=== PATIENT | female | born 1975 | race Caucasian/White ===

== ENCOUNTER 2024-10-26 17:52 | Emergency (ER) | payer BC, SELFPAY ==
[2024-10-26 18:30] VITALS: BP 142/79; PULSE 85; RESP 18; TEMP 37.6; O2SAT 100; BMI 30.9
--- NOTE | 2024-10-26 18:35 | PC.NURSE ---
DR CASTAÑEDA AT BEDSIDE
--- OUTSIDE RECORDS SUMMARY | 2024-10-26 18:45 | XMS_ITS | Encounter Summary ---
Author Organization [employer] ([place], [place], [place], [place]) Address [address] [place] [address] Care Team Providers Care Marketing Co Op Name Role Phone Unavailable Primary Care Provider Unavailabl e Encounter Details Date Type Department Care Team (Late st Contact Info) Description 12/17/2018 Transcribed Document [facility] [place] [address] [place] [address] ProviderJessee MD [address] [place], [place] [id number] Social History Tobacco Use Types Packs/Day Years Used Date Smoking Tobacco: Never Assessed Comments Unknown Sex and Gender Information Value Date Recorded Sex Assigned at Female 10/19/2021 12:32 PM CDT Legal Sex Female 6:42 PM CDT Gender Identity Female 10/19/2021 12:32 PM CDT Sexual Orientation Not on file documented as of this encounter Miscellaneous Notes * Cerner Conversion Note - Jessee ProviderMD - 12/17/2018 2:19 PM CDT Pain Assessment Entered On: 12/17/2018 15:43 EDT Performed On: 12/17/2018 15:43 EDT by Raissa Morris RN Intervention Information: HYDROmorphone Performed by Raissa Morris RN on 12/17/2018 14:25:00 EDT HYDROmorphone,1mg IV Push,Peripheral Line 1 Pain Assessment Pain Assessment : Follow-up assessment Pain Scale Used : 0-10 Scale Raissa Morris RN - 12/17/2018 15:43 EDT Pain Scale Intensity : 5 Raissa Morris RN - 12/17/2018 15:43 EDT Image 4 - Images currently included in the form version of this document have not been included in the text rendition version of the form. documented in this encounter Plan of Treatment Not on file documented as of this encounter Visit Diagnoses Not on filedocumented in this encounter
--- OUTSIDE RECORDS SUMMARY | 2024-10-26 18:45 | XMS_ITS | Encounter Summary ---
Author Organization [employer] ([place], [place], [place]) Address [address] [place] [address] Care Team Providers Care Exhaust And Muffler Repairer Name Role Phone Unavailable Primary Care Provider Unavailabl e Encounter Details Date Type Department Care Team (Late st Contact Info) Description 12/17/2018 Transcribed Document [facility] [place] [address] [place] [address] ProviderJessee MD [address] [place], [place] [id number] Social History Tobacco Use Types Packs/Day Years Used Date Smoking Tobacco: Never Assessed Comments Unknown Sex and Gender Information Value Date Recorded Sex Assigned at Female 10/19/2021 12:32 PM CDT Legal Sex Female 6:42 PM CDT Gender Identity Female 10/19/2021 12:32 PM CDT Sexual Orientation Not on file documented as of this encounter Miscellaneous Notes * Cerner Conversion Note - Historical ProviderMD - 12/17/2018 4:12 PM CDT Education-Diabetes Topics Entered On: 12/17/2018 17:44 EDT Performed On: 12/17/2018 16:12 EDT by Cindy Klein Rn Teaching/Learning Assessment Barriers To Learning : None evident Highest Level of Education : High school Learning Style Preferences Patient : Verbal explanation Learning Style Preferences Family : Verbal explanation Cindy Klein Rn - 12/17/2018 17:44 EDT Electronically signed by Brook Mcrae Conversion Environmental Sampling Technician Cerner at 08/08/2022 11:17 PM CDT documented in this encounter Plan of Treatment Not on file documented as of this encounter Visit Diagnoses Not on filedocumented in this encounter
--- OUTSIDE RECORDS SUMMARY | 2024-10-26 18:45 | XMS_ITS | Encounter Summary ---
Author Organization [employer] ([place], [place], [place]) Address [address] [place] [address] Care Team Providers Care Gas Mask Assembler Name Role Phone Unavailable Primary Care Provider Unavailabl e Encounter Details Date Type Department Care Team (Late st Contact Info) Description 12/17/2018 Transcribed Document [facility] [place] [address] [place] [address] ProviderJessee MD [address] [place], [place] [phone] Social History Tobacco Use Types Packs/Day Years [...] Conversion Note - Historical ProviderMD - 12/17/2018 1:45 PM CDT ED Assessment Entered On: 12/17/2018 14:42 EDT Performed On: 12/17/2018 14:40 EDT by Raissa Morris RN ED Quick Look Assessment Level of Consciousness : Alert, Awake Affect/Behavior : Appropriate, Calm, Cooperative Orientation : Oriented x 4 Raissa Morris RN - 12/17/2018 14:40 EDT ED General-Functional Assess Preferred Communication Mode : Verbal Communication Barrier : None Primary Language : [place] Any Spiritual/Cultural Needs or Requests : No Currently in Unsafe Situation : No Raissa Morris RN - 12/17/2018 14:40 EDT Social Habits Smoking Status : 10 or more cigarettes (1/2 pack or more)/day in last 30 days Smokeless Tobacco Status : Never Desires Tobacco Cessation Medication : No Reason for No Tobacco Cessation Medication : ED/procedural patient only Desires Tobacco Cessation Calc : 1 Raissa Morris RN - 12/17/2018 14:40 EDT Social History (As Of: 12/17/2018 14:42:06 EDT) Tobacco: Smoking Status Current every day smoker. Years of Use: 25. Last Used: 08/18/15. (Last Updated: 08/19/2015 06:58:21 EDT by YAMILETH AKINS, RN) Alcohol: Date/Time of Last Drink: never. (Last Updated: 08/19/2015 06:57:14 EDT by YAMILETH AKINS, RN) Gastrointestinal ED Gastrointestinal Assessment WDL : WDL with exceptions (Comment: + nausea, denies emesis. [Raissa Morris RN - 12/17/2018 14:40 EDT] ) Raissa Morris RN - 12/17/2018 14:40 EDT Genitourinary Assessment, ED Genitourinary Assessment WDL : WDL with exceptions (Comment: c/o L flank pain rad to L groin since Saturday, worse since 0 today. Known renal stone c CT done saturday - sent here per Dr. Aquilino Salazar's office for intervention. Denies fever. [Raissa Morris RN - 12/17/2018 14:40 EDT] ) Raissa Morris RN - 12/17/2018 14:40 EDT documented in this encounter Plan of Treatment Not on file documented as of this encounter Visit Diagnoses Not on filedocumented in this encounter
--- OUTSIDE RECORDS SUMMARY | 2024-10-26 18:45 | XMS_ITS | Encounter Summary ---
Author Organization [employer] ([place], [place], [place], [place]) Address [address] [place] [address] Care Team Providers Care Rn Diabetes Name Role Phone Unavailable Primary Care Provider Unavailabl e Encounter Details Date Type Department Care Team (Late st Contact Info) Description 12/18/2018 Transcribed Document [facility] Family Medicine [address] [place] [address] ProviderJessee MD [address] [place], [place] [phone] Social History Tobacco Use Types Packs/Day Years Used Date Smoking Tobacco: Never Assessed Comments Unknown Sex and Gender Information Value Date Recorded Sex Assigned at Female 10/19/2021 12:32 PM CDT Legal Sex Female 6:42 PM CDT Gender Identity Female 10/19/2021 12:32 PM CDT Sexual Orientation Not on file documented as of this encounter Miscellaneous Notes * Cerner Conversion Note - Jessee ProviderMD - 12/18/2018 3:42 PM CDT Final Discharge Planning Entered On: 12/18/2018 15:43 EDT Performed On: 12/18/2018 15:42 EDT by KIRSTIN BANKS Rn-Cmm Technician Final Discharge Planning Discharge Arrangements : Patient Post-Acute Information Patient Name: ENEIDA REY Gender: Female : [birth year] Age: 43 Years No Post-Acute Placement(s) Listed No Post-Acute Service(s) Listed No [place] Referral(s) Listed Transportation Needs : Family/Friend Discharge Transportation Arrangement Cmt : Discharge Medication Arrangements : Per andrew NOLASCO. Is Patient Ready for Discharge? : Yes Physician Notified Patient is Ready for Discharge? : Yes Discharge To Care Management : Home/Residential/Long Term or Self Care -01 KIRSTIN BANKS Rn-Cmm Technician - 12/18/2018 15:42 EDT documented in this encounter Plan of Treatment Not on file documented as of this encounter Visit Diagnoses Not on filedocumented in this encounter
--- OUTSIDE RECORDS SUMMARY | 2024-10-26 18:45 | XMS_ITS | Encounter Summary ---
Author Organization [employer] ([place], [place], [place], [place]) Address [address] [place] [address] Care Team Providers Care Wooden Barrel Mechanic Name Role Phone Unavailable Primary Care Provider Unavailabl e Encounter Details Date Type Department Care Team (Late st Contact Info) Description 12/17/2018 Transcribed Document [facility] [place] [facility] [place] [address] ProviderJessee MD [address] [place] [id number] Social History Tobacco Use Types Packs/Day Years [...] Conversion Note - Historical ProviderMD - 12/17/2018 2:18 PM CDT Patient: ENEIDA REY Age: 43 years Sex: Female : 1975 Associated Diagnoses: Left flank pain; Intractable pain; Left ureteral stone Author: MARYANN CAIN PA Basic Information Time seen: Date & time 12/17/2018 14:15:00. History source: Patient, significant other. Arrival mode: Private vehicle. History limitation: None. Additional information: Chief Complaint from Nursing Triage Note : Chief Complaint 12/17/2018 14:07 EDT Chief Complaint Pt has a known lt. kidney stone. Just left Dr. Salazar's office in [place] and he is on vacation . Here with severe pain . History of Present Illness The patient presents with flank pain. The onset was 2 days ago. The course/duration of symptoms is worsening. The Location of pain at onset was left, lower, abdominal and flank. The degree at present is severe. The exacerbating factor is none. Therapy today: has had two hydrocodone pills today. Risk factors consist of She had CT scan two days ago showing a 8x5cm left UPJ stone. Associated symptoms: nausea, denies chest pain, denies vomiting, denies diarrhea, denies shortness of breath, denies fever and denies chills. Additional history: She went to an appt at her urologist office (Dr Salazar) to see SENIOR ORACLE DATABASE DEVELOPER and due to her pain level she was advised to come to ER. Dr Salazar is out of town until next week. Review of Systems Constitutional symptoms: Negative except as documented in HPI. Skin symptoms: No rash, Eye symptoms: Negative except as documented in HPI. ENMT symptoms: Negative except as documented in HPI. Respiratory symptoms: No shortness of breath, no cough. Cardiovascular symptoms: No chest pain, no syncope. Gastrointestinal symptoms: Negative except as documented in HPI. Genitourinary symptoms: Negative except as documented in HPI. Musculoskeletal symptoms: Negative except as documented in HPI. Neurologic symptoms: Negative except as documented in HPI. Psychiatric symptoms: Negative except as documented in HPI. Endocrine symptoms: Negative except as documented in HPI. Hematologic/Lymphatic symptoms: Negative except as documented in HPI. Health Status Allergies: Allergic Reactions (Selected) No Known Medication Allergies. Medications: (Selected) Documented Medications Documented atorvastatin: 20 mg, Oral, Daily, 0 Refill(s) lisinopril: 10 mg, Oral, Daily, 0 Refill(s) metFORMIN: 1,000 mg, Oral, Daily, 0 Refill(s). Menstrual history: Last menstrual period: 2 week(s) ago. Past Medical/ Family/ Social History Medical history Endocrine: borderline diabetes . see problem list. Surgical history: renal lithotripsy on 08/17/2009 at 34 Years. c section. lithotripsy Jan 2018.. Family history: Not significant. Social history: Social & Psychosocial Habits Alcohol 08/19/2015 Date/Time of Last Drink never Tobacco 08/19/2015 Smoking Status Current every day smoker Years of Tobacco Use 25 Month Tobacco Last Used 08/18/15 . Problem list: Active Problems (7) Diabetes mellitus Hyperlipidemia hypertension kidney stones Obesity Smoker Wears glasses . Physical Examination Vital Signs Vital Signs/Vital Measures 12/17/2018 14:07 EDT Systolic Blood Pressure 145 mmHg HI Diastolic Blood Pressure 94 mmHg HI Temperature Source Oral Temperature Mode Fahrenheit Temperature, Fahrenheit 98.5 Deg F Clinical Temperature, C 36.9 Deg C Peripheral Pulse Rate 72 bpm Respiratory Rate 18 Breaths/Min Oxygen Saturation 96 % Oxygen Therapy Mode Room air . Measurements 12/17/2018 14:07 EDT Height Source Stated Height Entry Format M[place]ulloch Height/Length, GU[place]ALAN (ft) 5 ft Height/Length GU[place]ALAN 3 Inch CLINICALHEIGHT 160.02 cm Maxbass Body Weight 52.02 kg Weight Source, ED Critical estimated dosing weight Weight Entry Format M[place]ulloch Weight [place] Islander lb 255 lb CLINICALWEIGHT 115.91 kg Body Surface Area (BSA) 2.15 m2 Body Mass Index 45.3 kg/m2 >HHI . Oxygen Saturation 12/17/2018 14:07 EDT Oxygen Saturation 96 % . General: Alert, moderate distress. Skin: No rash. Head: Atraumatic. Neck: Supple. Eye: Normal conjunctiva. Ears, nose, mouth and throat: Oral mucosa moist. Cardiovascular: Regular rate and rhythm, No murmur. Respiratory: Lungs are clear to auscultation, respirations are non-labored. Gastrointestinal: Soft, Nontender, Non distended, Normal bowel sounds. Psychiatric: Cooperative. Medical Decision Making Differential Diagnosis: Renal stone, ureteral stone, urinary tract infection, pyelonephritis. Documents reviewed: Prior records. Orders Place New Orders Laboratory: Urinalysis w Microscopic if Indicated (Order): Specimen Type: Urine, Urine Type: U CleanCatch, Stat collect, 12/17/2018 14:19 EDT, 1-Time, Stop: 12/17/2018 14:19 EDT, Nurse Collect Lactic Acid Level with Reflex if Indicated (Order): Specimen Type: Blood, Stat collect, 12/17/2018 14:19 EDT, 1-Time, Stop: 12/17/2018 14:19 EDT, Nurse Collect BMP Basic Metabolic Panel (Order): Specimen Type: Blood, Stat collect, 12/17/2018 14:19 EDT, 1-Time, Stop: 12/17/2018 14:19 EDT, Nurse Collect CBC w/ Auto Diff (Order): Specimen Type: Blood, Stat collect, 12/17/2018 14:19 EDT, 1-Time, Stop: 12/17/2018 14:19 EDT, Nurse Collect Patient Care: Saline Lock Insert (Order): Start: 12/17/2018 14:19 EDT Pharmacy: promethazine (Order): 12.5 mg, IV Piggyback, 1-Time Dilaudid (Order): 1 mg, IV Push, 1-Time Normal Saline Flush (Order): 10 mL, IV Push, 1-Time Normal Saline Bolus (Order): 1,000 mL, 1,000 mL/Hr, IV Piggyback, 1-Time, Place New Orders Nutrition Services: NPO (immediate) (Order): Start: 12/17/2018 14:33 EDT, Except: No Exceptions , Place New Orders Radiology: CR KUB (Order): Stat, Transport Mode: Stretcher/Gurney, 12/17/2018 14:36 EDT, left UPJ stone 2 days ago 8x5cm . Results review: Lab results : Lab Results 12/17/2018 14:28 EDT Sodium Level 138 mmol/L Potassium Level 4.1 mmol/L Chloride Level 106 mmol/L Carbon Dioxide Level 22 mmol/L Anion Gap 14 Glucose Level 126 mg/dL HI Blood Urea Nitrogen 13 mg/dL Creatinine Level 0.80 mg/dL eGFR >60 mL/min/1.73m2 eGFR NonAfrican >60 mL/min/1.73m2 Bun/Creatinine 16.2 Calcium Level 9.4 mg/dL Lactic Acid Level 2.5 mmol/L CRIT WBC 11.9 K/uL HI RBC 5.12 Million/uL Hgb 11.9 g/dL Hct 36.8 % MCV 71.9 fL LOW MCH 23.2 pg LOW MCHC 32.3 Gram/dL Platelet Count 407 K/uL HI MPV 10.7 fL RDW 16.9 % HI Neut % 57.2 % Neut # 6.80 K/uL Lymph % 26.1 % Lymph # 3.10 K/uL Coles % 9.3 % Coles # 1.11 K/uL HI Eos % 6.4 % Eos # 0.76 Baso % 1.0 % Baso # 0.12 Slide Review No Urine Type U CleanCatch Urine Color Chery Urine Appearance Turbid Urine Specific Holloway 1.019 Urine pH Dipstick 5.5 LOW Urine Leukocyte Esterase Moderate Urine Nitrite Negative Urine Protein Dipstick 30 Urine Glucose Dipstick Negative Urine Ketones Dipstick Negative Urine Urobilinogen Dipstick 0.2 EU/dL Urine Bilirubin Dipstick Negative Urine Blood Dipstick Large Ur RBC TNTC /HPF Ur Epithelial Cells 10-20 /HPF Ur Calcium Oxalate Crystals Trace , Interpretation Labs unremarkable. Reexamination/ Reevaluation Interventions: Place New Orders Pharmacy: Dilaudid (Order): 1 mg, IV Push, 1-Time, PRN: Pain (Severe 7-10) Toradol (Order): 30 mg, IV Push, 1-Time . Impression and Plan Diagnosis Left flank pain - Discharge, Emergency medicine, Medical Intractable pain - Discharge, Emergency medicine, Medical Left ureteral stone - Discharge, Emergency medicine, Medical Calls-Consults - 12/17/2018 14:31:00 , RENITA CORADO MD-URO, advised of large stone and uncontrolled pain; he agrees will likely admit her, will have urology resident see her in ER, do KUB vs CT right now.. - 12/17/2018 15:45:00 , urology resident called she is on OR schedule for 11am tomorrow, asked for hospitalist to admit. - 12/17/2018 15:48:00 , CLAUDIO PAREKH MD, recommends med surg obs. Plan Condition: Improved. Disposition: Admit Admit/Transfer/Discharge: Place in Observation (Order): Start: 12/17/2018 15:48 EDT, Observation Reason: kidney stone;planned OR; intractable pain, Unit type: Med-Surg, Admitting: CLAUDIO PAREKH MD , Counseled: Patient, Family, Regarding diagnosis, Regarding diagnostic results, Regarding treatment plan. documented in this encounter Plan of Treatment Not on file documented as of this encounter Visit Diagnoses Not on filedocumented in this encounter
--- OUTSIDE RECORDS SUMMARY | 2024-10-26 18:45 | XMS_ITS | Encounter Summary ---
Author Organization [employer] ([place], [place], [place], [place]) Address [address] [place] [address] Care Team Providers Care Fabrication Supervisor Name Role Phone Unavailable Primary Care Provider Unavailabl e Encounter Details Date Type Department Care Team (Late st Contact Info) Description 12/18/2018 Transcribed Document [facility] [place] [address] [place] [address] ProviderJessee MD [address], [place] [id number] Social History Tobacco Use Types Packs/Day Years Used Date Smoking Tobacco: Never Assessed Comments Unknown Sex and Gender Information Value Date Recorded Sex Assigned at Female 10/19/2021 12:32 PM CDT Legal Sex Female 6:42 PM CDT Gender Identity Female 10/19/2021 12:32 PM CDT Sexual Orientation Not on file documented as of this encounter Miscellaneous Notes * Cerner Conversion Note - Historical ProviderMD - 12/18/2018 3:50 PM CDT Stroke/Warfarin Instructions Entered On: 12/18/2018 15:50 EDT Performed On: 12/18/2018 15:50 EDT by Emilio Bell RN Stroke/Warfarin Instructions Stroke/TIA Discharge Ins : N/A Warfarin Discharge Ins : N/A Emilio Bell RN - 12/18/2018 15:50 EDT Electronically signed by Brook Mcrae Conversion Interpretive Program Coordinator Merari at 08/08/2022 11:08 PM CDT documented in this encounter Plan of Treatment Not on file documented as of this encounter Visit Diagnoses Not on filedocumented in this encounter
--- OUTSIDE RECORDS SUMMARY | 2024-10-26 18:45 | XMS_ITS | Encounter Summary ---
Author Organization [employer] ([place], [place], [place], [place]) Address [address] [place] [address] Care Team Providers Care Hose Wrapper Name Role Phone Unavailable Primary Care Provider Unavailabl e Encounter Details Date Type Department Care Team (Late st Contact Info) Description 12/17/2018 Transcribed Document [facility] [place] [address] [place] [address] ProviderJessee MD [address] [place], [place] [id number] Social History Tobacco Use Types Packs/Day Years [...] Historical ProviderMD - 12/17/2018 4:12 PM CDT Valuables and Belongings Entered On: 12/17/2018 17:46 EDT Performed On: 12/17/2018 16:12 EDT by Cindy Klein Rn Valuables and Belongings Valuables and Belongings : Clothing Clothing : Common streetwear Clothing Disposition : With patient Cindy Klein Rn - 12/17/2018 17:46 EDT documented in this encounter Plan of Treatment Not on file documented as of this encounter Visit Diagnoses Not on filedocumented in this encounter
--- OUTSIDE RECORDS SUMMARY | 2024-10-26 18:45 | XMS_ITS | Encounter Summary ---
Author Organization [employer] ([place], [place], [place]) Address [address] [place] [address] Care Team Providers Care Pharmacy Messenger Name Role Phone Unavailable Primary Care Provider Unavailabl e Encounter Details Date Type Department Care Team (Late st Contact Info) Description 12/18/2018 Transcribed Document [facility] [place] Medicine [facility] [place] [address] ProviderJessee MD [address] [place] [phone] Social History Tobacco Use Types Packs/Day Years [...] Conversion Note - Historical ProviderMD - 12/18/2018 12:08 PM CDT [facility] Main OR PACU Summary Primary Physician: RACH MOREJON MD-URO Finalized Date/Time: 12/18/18 13:29:17 Pt. Name: ENEIDA REYO.B./Sex: 1975 Female Med Rec #: [id number] Physician: CLAUDIO PAREKH MD Financial #: [id number] Pt. Type: O Room/Bed: [facility]/1 Admit/Disch: 12/17/18 15:48:00 - Institution: [facility] Main OR PACU I Case Times Entry 1 In PACU I 12/18/18 12:40:00 Ready for PACU 12/18/18 13:15:00 Discharge Discharge from PACU 12/18/18 13:20:00 I Last Modified By: Jocelin Soto Rn-Traveler 12/18/18 13:29:03 [facility] Main OR PACU Acuity Entry 1 Start Time 12/18/18 13:15:00 Stop Time 12/18/18 13:20:00 Acuity Level [facility] PACU Acuity I Last Modified By: Jocelin Soto Rn-Traveler 12/18/18 13:29:15 Finalized By: Jocelin Soto Rn-Traveler Document Signatures Signed By: Jocelin Soto Rn-Traveler 12/18/18 13:29 Electronically signed by [facility] Conversion Claim Representative Cerner at 08/08/2022 11:09 PM CDT documented in this encounter Plan of Treatment Not on file documented as of this encounter Visit Diagnoses Not on filedocumented in this encounter
--- OUTSIDE RECORDS SUMMARY | 2024-10-26 18:45 | XMS_ITS | Encounter Summary ---
Author Organization [email or web address] ([place], [place], [place], [place]) Address [address] [place] [address] Care Team Providers Care Healthcare Management Consultant Name Role Phone Unavailable Primary Care Provider Unavailabl e Encounter Details Date Type Department Care Team (Late st Contact Info) Description 12/17/2018 Transcribed Document [facility] [place] [address] [place] [address] ProviderJessee MD [address] [place], [place] [phone] Social History Tobacco Use Types Packs/Day Years [...] Conversion Note - Jessee ProviderMD - 12/17/2018 3:11 PM CDT Pain Assessment Entered On: 12/17/2018 16:39 EDT Performed On: 12/17/2018 16:38 EDT by Leslie Moya Rn Intervention Information: ketorolac Performed by Raissa Morris RN on 12/17/2018 15:44:00 EDT ketorolac,30mg IV Push,Peripheral Line 1 Pain Assessment Pain Assessment : Follow-up assessment Pain Scale Used : 0-10 Scale Leslie Moya Rn - 12/17/2018 16:38 EDT Pain Scale Intensity : 5 Leslie Moya Rn - 12/17/2018 16:38 EDT Image 4 - Images currently included in the form version of this document have not been included in the text rendition version of the form. documented in this encounter Plan of Treatment Not on file documented as of this encounter Visit Diagnoses Not on filedocumented in this encounter
--- OUTSIDE RECORDS SUMMARY | 2024-10-26 18:45 | XMS_ITS | Clinical Summary ---
Author Organization [employer] ([place], [place], [place], [place]) Address [address] [place] [address] Care Team Providers Care Technician Support Engineer Name Role Phone Unavailable Primary Care Provider Unavailabl e Social History Tobacco Use Types Packs/Day Years Used Date Smoking Tobacco: Never Assessed Comments Unknown Sex and Gender Information Value Date Recorded Sex Assigned at Female 10/19/2021 12:32 PM CDT Legal Sex Female 6:42 PM CDT Gender Identity Female 10/19/2021 12:32 PM CDT Sexual Orientation Not on file Plan of Treatment Not on file
--- OUTSIDE RECORDS SUMMARY | 2024-10-26 18:45 | XMS_ITS | Encounter Summary ---
Author Organization [employer] ([place], [place], [place], [place]) Address [address] [place] [address] Care Team Providers Care Defence Force Senior Officer Name Role Phone Unavailable Primary Care Provider Unavailabl e Encounter Details Date Type Department Care Team (Late st Contact Info) Description 12/18/2018 Transcribed Document [facility] [place] Family Medicine [address] [place] [address] ProviderJessee MD [address], [place] [address] Social History Tobacco Use Types Packs/Day Years [...] Conversion Note - Historical ProviderMD - 12/18/2018 3:35 PM CDT Initial Discharge Planning Entered On: 12/18/2018 15:42 EDT Performed On: 12/18/2018 15:35 EDT by KIRSTIN BANKS Rn-Core Feeder Initial Assessment I Previously Documented Living Environment : No qualifying data available. Living Situation : Home Patient Lives With : Adult Child/Children, Spouse Emergency Contact #1 : William Rai Emergency Contact #1 Emergency Contact #1 Relationship : Emergency Contact #2 : n/a Emergency Contact #2 Phone Number : n/a Emergency Contact #2 Relationship : n/a KIRSTIN BANKS Rn-Core Feeder - 12/18/2018 15:35 EDT Initial Assessment II Sensory and Motor Deficits : None Current Home Treatments and Equipment : None KIRSTIN BANKS Rn-Core Feeder - 12/18/2018 15:35 EDT Discharge Needs I Anticipated Discharge Date : 12/18/2018 EDT Current Home Treatment/Equipment : Current Home Treatment/Equipment No qualifying data available. Post Acute/Home Treatments : None KIRSTIN BANKS Rn-Core Feeder - 12/18/2018 15:35 EDT Discharge Needs II Professional Skilled Services : Professional Skilled Services No qualifying data available. Needs Assistance with Transportation : No KIRSTIN BANKS Rn-Core Feeder - 12/18/2018 15:35 EDT Narrative Note Narrative Note : RRS: Low 29 PLOF: Independent and self care global sourcing manager met with pt at the bedside with her family. Introduced self and role of CM. Pt lives at home with her . Demographics verified as lisyted on the face sheet. Denies use of DME, or HH in the past. No dc needs at this time. CM will continue following. KIRSTIN BANKS Rn-Core Feeder - 12/18/2018 15:35 EDT Electronically signed by Brook Mcrae Conversion Gear Cutting Machine Set Up Operator Cerner at 08/08/2022 11:19 PM CDT documented in this encounter Plan of Treatment Not on file documented as of this encounter Visit Diagnoses Not on filedocumented in this encounter
--- OUTSIDE RECORDS SUMMARY | 2024-10-26 18:45 | XMS_ITS | Encounter Summary ---
Author Organization [employer] ([place], [place], [place], [place]) Address [address] [place] [address] Care Team Providers Care Pill Machine Operator Name Role Phone Unavailable Primary Care Provider Unavailabl e Encounter Details Date Type Department Care Team (Late st Contact Info) Description 12/17/2018 Transcribed Document [facility] [place] Family [place] [facility] [address] ProviderJessee MD [address] [place] [phone] Social History Tobacco Use Types Packs/Day Years [...] ProviderMD - 12/17/2018 1:45 PM CDT ED Triage Entered On: 12/17/2018 14:10 EDT Performed On: 12/17/2018 14:07 EDT by AL KELLEY RN ED Triage Across the Room Triage Date/Time : 12/17/2018 14:07 EDT Trauma Room Arrival Date and Time : 12/17/2018 13:46 EDT Chief Complaint : Pt has a known lt. kidney stone. Just left Dr. Salazar's office in [facility] and he is on vacation . Here with severe pain AL KELLEY RN - 12/17/2018 14:07 EDT DCP GENERIC CODE Tracking Acuity : 3 - Urgent Tracking Group : [facility] ED AL KELLEY RN - 12/17/2018 14:07 EDT Mode of Arrival : Wheelchair Transported to ED by : Private vehicle To Room Via : Wheelchair Accompanied By : Spouse ED Vital Signs : Document Height & Weight : Document ED Allergies : Document ED Reason for Visit : Document AL KELLEY RN - 12/17/2018 14:07 EDT Infectious Disease History Infectious Disease History : Chicken pox/Shingles Fever/Chills Last 48 Hours : No Travel To Regions with Travel Advisories : No Travel Outside [place] Within Last 30 Days : No Contact With Traveler to Advisory Region : No Tuberculosis Symptoms : None AL KELLEY RN - 12/17/2018 14:07 EDT Vital Signs ED Temperature Source : Oral Temperature Mode : Fahrenheit Temperature, Fahrenheit : 98.5 Deg F Clinical Temperature, C : 36.9 Deg C Oxygen Therapy Mode : Room air Peripheral Pulse Rate : 72 bpm Respiratory Rate : 18 Breaths/Min Systolic Blood Pressure : 145 mmHg (HI) Diastolic Blood Pressure : 94 mmHg (HI) Oxygen Saturation : 96 % AL KELLEY RN - 12/17/2018 14:07 EDT Allergy (As Of: 12/17/2018 14:10:22 EDT) Allergies (Active) No Known Medication Allergies Estimated Onset Date: Unspecified ; Created By: YAMILETH AKINS RN; Reaction Status: Active ; Category: Drug ; Substance: No Known Medication Allergies ; Type: Allergy ; Updated By: YAMILETH AKINS RN; Reviewed Date: 12/17/2018 14:08 EDT Diagnosis Control ED (As Of: 12/17/2018 14:10:22 EDT) Problems(Active) Diabetes mellitus (SNOMED CT :763260166 ) Name of Problem: Diabetes mellitus ; Recorder: FELIPE ESPARZA RN; Confirmation: Confirmed ; Classification: Medical ; Code: [id number] ; Contributor System: [employer] ; Last Updated: 01/22/2018 16:54 EDT ; Life Cycle Date: 01/22/2018 ; Life Cycle Status: Active ; Vocabulary: SNOMED CT Hyperlipidemia (SNOMED CT :10417046 ) Name of Problem: Hyperlipidemia ; Recorder: FELIPE ESPARZA RN; Confirmation: Confirmed ; Classification: Medical ; Code: [id number] ; Contributor System: [employer] ; Last Updated: 01/22/2018 16:54 EDT ; Life Cycle Date: 01/22/2018 ; Life Cycle Status: Active ; Vocabulary: SNOMED CT hypertension (SNOMED CT :6709643244 ) Name of Problem: hypertension ; Recorder: YAMILETH AKINS RN; Confirmation: Confirmed ; Classification: Medical ; Code: [id number] ; Contributor System: [employer] ; Last Updated: 02/19/2018 11:53 EDT ; Life Cycle Date: 08/19/2015 ; Life Cycle Status: Active ; Vocabulary: SNOMED CT kidney stones (SNOMED CT :645867048 ) Name of Problem: kidney stones ; Recorder: YAMILETH AKINS RN; Confirmation: Confirmed ; Classification: Medical ; Code: [id number] ; Contributor System: [employer] ; Last Updated: 02/19/2018 11:48 EDT ; Life Cycle Date: 08/19/2015 ; Life Cycle Status: Active ; Vocabulary: SNOMED CT Obesity (SNOMED CT :0941946579 ) Name of Problem: Obesity ; Recorder: YAMILETH AKINS RN; Confirmation: Confirmed ; Classification: Medical ; Code: [id number] ; Contributor System: [employer] ; Last Updated: 10/06/2018 15:18 EDT ; Life Cycle Status: Active ; Vocabulary: SNOMED CT Smoker (SNOMED CT :936262884 ) Name of Problem: Smoker ; Recorder: SHANNAN ALDRICH RN; Confirmation: Confirmed ; Classification: Medical ; Code: [id number] ; Contributor System: [employer] ; Last Updated: 02/14/2018 8:34 EDT ; Life Cycle Date: 02/14/2018 ; Life Cycle Status: Active ; Vocabulary: SNOMED CT Wears glasses (SNOMED CT :871721146 ) Name of Problem: Wears glasses ; Recorder: YAMILETH AKINS RN; Confirmation: Confirmed ; Classification: Medical ; Code: [id number] ; Contributor System: [employer] ; Last Updated: 10/06/2018 15:18 EDT ; Life Cycle Status: Active ; Vocabulary: SNOMED CT Diagnoses(Active) Flank pain Date: 12/17/2018 ; Diagnosis Type: Reason For Visit ; Confirmation: Complaint of ; Clinical Dx: Flank pain ; Classification: Medical ; Clinical Service: Emergency medicine ; Code: PNED ; Probability: 0 ; Diagnosis Code: [id number] ED Height and Weight Height Source : Stated Height Entry Format : Aiken Height, Feet : 5 ft(Converted to: 152 cm, 60 Inch) Height, Inches : 3 Inch(Converted to: 0 ft 3 Inch, 7.62 cm) Clinical Height : 160.02 cm Weight Source, ED : Critical estimated dosing weight Weight Entry Format : [place]iken Weight, Pounds : 255 lb Clinical Dosing Weight : 115.91 kg Body Surface Area (BSA) : 2.15 m2 Body Mass Index : 45.3 kg/m2 (>HHI) Burns Body Weight (IBW) : 52.02 kg AL KELLEY RN - 12/17/2018 14:07 EDT documented in this encounter Plan of Treatment Not on file documented as of this encounter Visit Diagnoses Not on filedocumented in this encounter
--- OUTSIDE RECORDS SUMMARY | 2024-10-26 18:45 | XMS_ITS | Encounter Summary ---
Author Organization [employer] ([place], [place], [place], [place]) Address [address] [place] [address] Care Team Providers Care Ingot Header Name Role Phone Unavailable Primary Care Provider Unavailabl e Encounter Details Date Type Department Care Team (Late st Contact Info) Description 12/18/2018 Transcribed Document [facility] [place] [facility] [place] [address] ProviderJessee MD [address] [place], [place] [phone] Social History Tobacco Use Types Packs/Day Years [...] Conversion Note - Jessee ProviderMD - 12/18/2018 3:50 PM CDT Patient Education Materials Follows: Dietary Guidelines to Help Prevent Kidney Stones Kidney stones are deposits of minerals and salts that form inside your kidneys. Your risk of developing kidney stones may be greater depending on your diet, your lifestyle, the medicines you take, and whether you have certain medical conditions. Most people can reduce their chances of developing kidney stones by following the instructions below. Depending on your overall health and the type of kidney stones you tend to develop, your dietitian may give you more specific instructions. What are tips for following this plan? Reading food labels ??? Choose foods with no salt added or low-salt labels. Limit your sodium intake to less than 1500 mg per day. ??? Choose foods with calcium for each meal and snack. Try to eat about 300 mg of calcium at each meal. Foods that contain 200?500 mg of calcium per serving include: ? 8 oz (237 ml) of milk, fortified nondairy milk, and fortified fruit juice. ? 8 oz (237 ml) of kefir, yogurt, and soy yogurt. ? 4 oz (118 ml) of tofu. ? 1 oz of cheese. ? 1 cup (300 g) of dried figs. ? 1 cup (91 g) of cooked broccoli. ? 1?3 oz can of sardines or mackerel. ??? Most people need 1000 to 1500 mg of calcium each day. Talk to your dietitian about how much calcium is recommended for you. Shopping ??? Buy plenty of fresh fruits and vegetables. Most people do not need to avoid fruits and vegetables, even if they contain nutrients that may contribute to kidney stones. ??? When shopping for convenience foods, choose: ? Whole pieces of fruit. ? Premade salads with dressing on the side. ? Low-fat fruit and yogurt smoothies. ??? Avoid buying frozen meals or prepared deli foods. ??? Look for foods with live cultures, such as yogurt and kefir. Cooking ??? Do not add salt to food when cooking. Place a salt shaker on the table and allow each person to add his or her own salt to taste. ??? Use vegetable protein, such as beans, textured vegetable protein (TVP), or tofu instead of meat in pasta, casseroles, and soups. Meal planning ??? Eat less salt, if told by your dietitian. To do this: ? Avoid eating processed or premade food. ? Avoid eating fast food. ??? Eat less animal protein, including cheese, meat, poultry, or fish, if told by your dietitian. To do this: ? Limit the number of times you have meat, poultry, fish, or cheese each week. Eat a diet free of meat at least 2 days a week. ? Eat only one serving each day of meat, poultry, fish, or seafood. ? When you prepare animal protein, cut pieces into small portion sizes. For most meat and fish, one serving is about the size of one deck of cards. ??? Eat at least 5 servings of fresh fruits and vegetables each day. To do this: ? Keep fruits and vegetables on hand for snacks. ? Eat 1 piece of fruit or a handful of berries with breakfast. ? Have a salad and fruit at lunch. ? Have two kinds of vegetables at dinner. ??? Limit foods that are high in a substance called oxalate. These include: ? Spinach. ? Rhubarb. ? Beets. ? Potato chips and jordanian fries. ? Nuts. ??? If you regularly take a diuretic medicine, make sure to eat at least 1?2 fruits or vegetables high in potassium each day. These include: ? Avocado. ? Banana. ? Bledsoe, prune, carrot, or tomato juice. ? Baked potato. ? Cabbage. ? Beans and split peas. General instructions ??? Drink enough fluid to keep your urine clear or pale yellow. This is the most important thing you can do. ??? Talk to your health care provider and dietitian about taking daily supplements. Depending on your health and the cause of your kidney stones, you may be advised: ? Not to take supplements with vitamin C. ? To take a calcium supplement. ? To take a daily probiotic supplement. ? To take other supplements such as magnesium, fish oil, or vitamin B6. ??? Take all medicines and supplements as told by your health care provider. ??? Limit alcohol intake to no more than 1 drink a day for non women and 2 drinks a day for men. One drink equals 12 oz of beer, 5 oz of wine, or 1? oz of hard liquor. ??? Lose weight if told by your health care provider. Work with your dietitian to find strategies and an eating plan that works best for you. What foods are not recommended? Limit your intake of the following foods, or as told by your dietitian. Talk to your dietitian about specific foods you should avoid based on the type of kidney stones and your overall health. Grains Breads. Bagels. Rolls. Baked goods. Salted crackers. Cereal. Pasta. Vegetables Spinach. Rhubarb. Beets. Canned vegetables. Pickles. Olives. Meats and other protein foods Nuts. Nut butters. Large portions of meat, poultry, or fish. Salted or cured meats. Deli meats. Hot dogs. Sausages. Dairy Cheese. Beverages Regular soft drinks. Regular vegetable juice. Seasonings and other foods Seasoning blends with salt. Salad dressings. Canned soups. Soy sauce. Ketchup. Barbecue sauce. Canned pasta sauce. Casseroles. Pizza. Lasagna. Frozen meals. Potato chips. Estonian fries. Summary ??? You can reduce your risk of kidney stones by making changes to your diet. ??? The most important thing you can do is drink enough fluid. You should drink enough fluid to keep your urine clear or pale yellow. ??? Ask your health care provider or dietitian how much protein from animal sources you should eat each day, and also how much salt and calcium you should have each day. This information is not intended to replace advice given to you by your health care provider. Make sure you discuss any questions you have with your health care provider. Document Released: 08/03/2011 Document Revised: 03/19/2017 Document Reviewed: 03/19/2017 [employer] Interactive Patient Education ? 2019 CSR. Flank Pain Flank pain is pain in your side. The flank is the area of your side between your upper belly (abdomen) and your back. The pain may occur over a short period of time (acute) or may be long-term or come back often (chronic). It may be mild or very bad. Pain in this area can be caused by many different things. Follow these instructions at home: ??? Rest as told by your doctor. ??? Drink enough fluid to keep your pee (urine) clear or pale yellow. ??? Take ufit-bhk-ptbljbt and prescription medicines only as told by your doctor. ??? Keep all follow-up visits as told by your doctor. This is important. Contact a doctor if: ??? Medicine does not help your pain. ??? You have new symptoms. ??? Your pain gets worse. ??? You have a fever. ??? Your symptoms last longer than 2?3 days. Get help right away if: ??? Your tummy hurts or is swollen. ??? You are short of breath. ??? You feel sick to your stomach (nauseous) and it does not go away. ??? You cannot stop throwing up (vomiting). ??? You feel like you will pass out or you do pass out (faint). ??? You have blood in your pee. ??? You have a fever and your symptoms suddenly get worse. This information is not intended to replace advice given to you by your health care provider. Make sure you discuss any questions you have with your health care provider. Document Released: 01/15/2009 Document Revised: 12/28/2016 Document Reviewed: 01/10/2016 [employer] Interactive Patient Education ? 2017 [employer] documented in this encounter Plan of Treatment Not on file documented as of this encounter Visit Diagnoses Not on filedocumented in this encounter
--- OUTSIDE RECORDS SUMMARY | 2024-10-26 18:45 | XMS_ITS | Encounter Summary ---
Author Organization [employer] ([place], [place], [place], [place]) Address [address] [place] [address] Care Team Providers Care Carpentry Professional Name Role Phone Unavailable Primary Care Provider Unavailabl e Encounter Details Date Type Department Care Team (Late st Contact Info) Description 12/18/2018 Transcribed Document [facility] [place] Family Medicine [facility] [place] [address] ProviderJessee MD [address] [place] [phone] Social History Tobacco Use Types Packs/Day Years Used Date Smoking Tobacco: Never Assessed Comments Unknown Sex and Gender Information Value Date Recorded Sex Assigned at Female 10/19/2021 12:32 PM CDT Legal Sex Female 6:42 PM CDT Gender Identity Female 10/19/2021 12:32 PM CDT Sexual Orientation Not on file documented as of this encounter Miscellaneous Notes * Cerner Conversion Note - Jessee Rich MD - 12/18/2018 1:17 PM CDT Patient: ENEIDA REY Age: 43 Years Sex: Female : 1975 Admit Date 12/17/2018 15:48 Discharge Date 12/18/18 Primary Care Provider CHAVA HUITRON MD-[facility] Discharge Diagnosis 8.5 mm L UPJ stone with renal colic -xr noted - urology following - admit for pain and nausea control - per urology: to OR tomorrow for left ureteroscopy, laser lithotripsy, stent with Dr. Weaver - NPO at midnight - strain all urine lactic acidosis, resolved DM II -SSI -diabetic diet when able morbid obesity -complicates all aspects of medical care Tobacco abuse, -encourage cessation -refuses nicotine patch hlp -continue home meds Procedures SN - Proc - Procedure: Ureteral Stent Insertion (12/18/18 12:45:05) SN - Proc - Procedure: Ureteroscopy (12/18/18 12:45:05) Studies Radiology Results (Last 48 hours) [id number] -- 12/17/2018 15:48 CR Abdomen 1 Vw (12/17/2018 14:56) Result: KUBHISTORY: Nephrolithiasis .COMPARISON:February 14, 2018FINDINGS: A single view of the abdomen with a coned-down of the pelvisdemonstrates a nonspecific nonobstructive bowel gas pattern. There are 2stones identified overlying the lower pole of the right kidney measuringup to 6 mm. These may be slightly smaller when compared to prior. Rightureteral stent has been removed in the interim. Calcifications withinthe right upper quadrant are consistent with gallstones.IMPRESSION: Right nephrolithiasis. Images reviewed, interpreted, and dictated by Dr. Levi Chen.Transcribed by ZENON Gilbert have personally viewed, interpreted and dictated the examination. Ihave read and agree with the above final transcribed report. Reason for Hospitalization 43 yo female with hx of renal stones (requiring lithotripsy), DM II, obesity, HTN and HLP presented to [facility] ED with severe left flank pain. She went to [facility] on Saturday where reportedly CT showed 8.5mm UPJ stone. She apparently was discahrged with pain meds. She presented for follow up today with Dr. Salazar but pain had worsened and he was OOT so she was sent to ER. In severe distress on arrival. She has also had nausea without vomiting. She denies dysuria, difficulty urinating, or fever/chills. UA showed gross hematuria with +CaOx crystals, +squams, +LE, -nit, -chantale. WBC 11.9, Cr 0.8. Plain films show calcification near UPJ and one distal ureter. She was referred to us for urology exam and pain control . [1] NAEON. Pain well controlled overnight. Still hurting this morning. Hospital Course Pt admitted and seen by urology. Underwent: Underwent cysto, L URS/LL, stent. Uncomplicated procedure. Single 8.5mm stone identified in distal L ureter and fragmented. All fragments removed. No other stones identified. 43yo female with left ureteral calculus, intractable pain and nausea. Admitted overnight for symptom control. Underwent cystoscopy, left ureteroscopy, laser lithotripsy and basket stone extraction w/ stent placement on 12/18. - ok to discharge home from urological perspective - UCx sent from OR - pt to remove stent by pulling strings on Saturday 12/23 - Rx for [place], colace and tamsulosin on chart - pt to follow-up with Dr. Salazar in 2-4 weeks [2] Vital Signs T: 36.4 ??C TMIN: 36.4 ??C TMAX: 36.9 ??C HR: 67(Monitored) RR: 25 BP: 149/81 SpO2: 100% HT: 160.02 cm WT: 119.91 kg BMI: 46.8 Oxygen Settings (Last) Oxygen Therapy Mode: Room air (12/18/18 13:00:00) Oxygen Flow Rate: 6 Liter/Min (12/18/18 12:40:00) Physical Exam seen in recovery post procedure Groggy but alert and answers appropriately abdomen soft, +BS heart: RRR, no murmur heard Discharge Disposition Home Discharge Follow Up CHAVA HUITRON - Within 2 to 3 days Patient [facility] - Rufino SALAZAR MD-URO - Within 2 to 4 weeks Discharge Medications (6) Active atorvastatin 20 mg, Oral, Daily Colace 100 mg oral capsule 100 mg = 1 Cap, Oral, BID Flomax 0.4 mg oral capsule 0.4 mg = 1 Cap, Oral, QPM lisinopril 10 mg, Oral, Daily metFORMIN 1,000 mg, Oral, Daily [place] 5 mg-325 mg oral tablet 1 Tab, Oral, Q6H Code Status Start: 12/17/18 16:12:00 EDT, Full Code, Continuous Order Condition on Discharge stable Consulting Physicians MARE BOBBY MD HADLEY, FRED P, MD-URO RENITA CORADO MD-URO JAE HUMPHREYS MD Pending Labs Collected Culture Urine (Urine Culture) Specimen Type: Urine, Catherized, From: Bladder, Routine collect, Collected, 12/18/18 12:08:00 EDT By: MARE BOBBY MD, 1-Time, Stop: 12/18/18 12:08:00 EDT, Nurse Collect, Specimen Desc: Urine obtained during cystoscopy, Print Label By Order Loc... Time Spent on Discharge 28 mins. [1] Admission H & P; DRE TYLER PA 12/17/2018 15:55 EDT [2] Urology Progress Note; MARE BOBBY MD 12/18/2018 12:47 EDT Electronically signed by [facility] Conversion Orchestra Leader Cerner at 08/08/2022 11:16 PM CDT documented in this encounter Plan of Treatment Not on file documented as of this encounter Visit Diagnoses Not on filedocumented in this encounter
--- OUTSIDE RECORDS SUMMARY | 2024-10-26 18:45 | XMS_ITS | Referral Summary ---
Author Organization [employer] ([place], [place], [place], [place]) Address [address] [place] [address] Care Team Providers Care Pug Mill Operator Name Role Phone Unavailable Primary Care [...]
--- OUTSIDE RECORDS SUMMARY | 2024-10-26 18:45 | XMS_ITS | Encounter Summary ---
Author Organization [employer] ([place], [place], [place], [place]) Address [address] [place] [address] Care Team Providers Care Solution Specialist Name Role Phone Unavailable Primary Care Provider Unavailabl e Encounter Details Date Type Department Care Team (Late st Contact Info) Description 12/17/2018 Transcribed Document [facility] [place] [address] ProviderJessee MD [address] [place], [place] [phone] Social History Tobacco Use Types Packs/Day Years [...] Historical ProviderMD - 12/17/2018 4:12 PM CDT Pain Assessment Entered On: 12/18/2018 2:26 EDT Performed On: 12/17/2018 23:19 EDT by Evelyn Valles, Rn Intervention Information: acetaminophen-HYDROcodone Performed by Evelyn Valles, Rn on 12/17/2018 22:19:00 EDT acetaminophen-HYDROcodone,1Tab Oral,Pain (Moderate 4-6) Pain Assessment Pain Assessment : Follow-up assessment Pain Scale Goal : 2 Pain Intervention, Drug : Medicated Pain Improved by Intervention : Yes Evelyn Valles, Devin - 12/18/2018 2:26 EDT documented in this encounter Plan of Treatment Not on file documented as of this encounter Visit Diagnoses Not on filedocumented in this encounter
--- OUTSIDE RECORDS SUMMARY | 2024-10-26 18:45 | XMS_ITS | Encounter Summary ---
Author Organization [employer] ([place], [place], [place], [place]) Address [address] [place] [address] Care Team Providers Care Cloth Printer Helper Name Role Phone Unavailable Primary Care Provider Unavailabl e Encounter Details Date Type Department Care Team (Late st Contact Info) Description 12/18/2018 Transcribed Document [facility] [place] Family Medicine [facility] [place] [address] ProviderJessee MD [address] [place] [address] [id number] Social History Tobacco Use Types Packs/Day Years [...] Historical ProviderMD - 12/18/2018 12:08 PM CDT [facility] Main OR Preop Summary Primary Physician: RACH MOREJON MD-URO Finalized Date/Time: 12/18/18 13:49:07 Pt. Name: ENEIDA REYO.B./Sex: 1975 Female Med Rec #: [id number] Physician: CLAUDIO PAREKH MD Financial #: [id number] Pt. Type: O Room/Bed: [facility]/ Admit/Disch: 12/17/18 15:48:00 - Institution: [facility] PreOp Case Times Entry 1 In Preop 12/18/18 09:23:00 Ready for Holding n/a Room Patient Ready for 12/18/18 09:41:00 Surgery Patient Out of Preop 12/18/18 11:43:00 Patient Out of n/a Holding Room Last Modified By: REINALDO Addison RN 12/18/18 13:49:06 Finalized By: REINALDO Addison RN Document Signatures Signed By: REINALDO Addison RN 12/18/18 13:49 Electronically signed by [facility] Conversion Harbor Pilot Cerner at 08/08/2022 11:32 PM CDT documented in this encounter Plan of Treatment Not on file documented as of this encounter Visit Diagnoses Not on filedocumented in this encounter
--- OUTSIDE RECORDS SUMMARY | 2024-10-26 18:45 | XMS_ITS | Encounter Summary ---
Author Organization [employer] ([place], [place], [place], [place]) Address [address] [place] [address] Care Team Providers Care Water Restoration Technician Name Role Phone Unavailable Primary Care Provider Unavailabl e Encounter Details Date Type Department Care Team (Late st Contact Info) Description 12/17/2018 Transcribed Document [facility] [place] [address] [place] [address] ProviderJessee MD [address] [place], [place] [id number] Social History Tobacco Use Types Packs/Day Years [...] Conversion Note - Historical ProviderMD - 12/17/2018 5:00 PM CDT Chart Check - Review Order Profile Entered On: 12/17/2018 17:46 EDT Performed On: 12/17/2018 17:00 EDT by Cindy Klein Rn Chart Check Powerplans Initiated/Discontinued as Appropriate : Yes All Active Orders Reviewed : Yes Cindy Klein Rn - 12/17/2018 17:46 EDT documented in this encounter Plan of Treatment Not on file documented as of this encounter Visit Diagnoses Not on filedocumented in this encounter
--- OUTSIDE RECORDS SUMMARY | 2024-10-26 18:45 | XMS_ITS | Encounter Summary ---
Author Organization [employer] ([place], [place], [place], [place]) Address [address] [place] [address] Care Team Providers Care Babysitter Name Role Phone Unavailable Primary Care Provider Unavailabl e Encounter Details Date Type Department Care Team (Late st Contact Info) Description 12/17/2018 Transcribed Document [facility] [place] [facility] [place] [address] ProviderJessee MD [address] [place] [address] [phone] Social History Tobacco Use Types Packs/Day Years [...] On: 12/18/2018 2:26 EDT Performed On: 12/17/2018 20:36 EDT by Evelyn Valles, Rn Intervention Information: HYDROmorphone Performed by Evelyn Valles, Rn on 12/17/2018 20:06:00 EDT HYDROmorphone,0.5mg IV Push,Right Mid Forearm,Pain (Severe 7-10) Pain Assessment Pain Assessment : Follow-up assessment Pain Scale Goal : 2 Pain Intervention, Drug : Medicated Pain Improved by Intervention : Yes Evelyn Valles, Rn - 12/18/2018 2:26 EDT documented in this encounter Plan of Treatment Not on file documented as of this encounter Visit Diagnoses Not on filedocumented in this encounter
--- OUTSIDE RECORDS SUMMARY | 2024-10-26 18:45 | XMS_ITS | Encounter Summary ---
Author Organization [employer] ([place], [place], [place], [place]) Address [address] [place] [address] Care Team Providers Care Grain And Yeast Plants Supervisor Name Role Phone Unavailable Primary Care Provider Unavailabl e Encounter Details Date Type Department Care Team (Late st Contact Info) Description 12/18/2018 Transcribed Document [facility] [place] [address] ProviderJessee MD [address] [place] [id number] Social History Tobacco Use Types Packs/Day Years [...] Note - Jessee Rich MD - 12/18/2018 3:52 PM CDT [facility] [place] [address] ENEIDA REY :1975 Visit Time:12/17/2018 Your Visit Summary Your Care Team Admitting Physician - JON HARRISON MARK, MD SRINIVASAN, VIJAYA L, MD-INT Attending Physician - CLAUDIO ROJAS MD SRINIVASAN, VIJAYA L, MD-INT Primary Care Physician - CHAVA ELENA MD-[facility] Referring Physician - CLAUDIO ROJAS MD Your Diagnosis Calculus of kidney, Calculus of kidney Flank pain Intractable pain Left flank pain Left ureteral stone Discharge Vitals Temperature 36.7 ??C Heart Rate (Monitored) 74 Respiratory Rate 19 Blood Pressure 158/88 What to do next Follow-Up Appointments Follow Up with Rufino SALAZAR MD-URO When Within 2 to 4 weeks Comments Call for follow up appointment ok to discharge home from urological perspective - UCx sent from OR - pt to remove stent by pulling strings on Saturday 12/23 - Rx for Dime Box, colace and tamsulosin on chart - pt to follow-up with Dr. Salazar in 2-4 weeks Where: [place], [place] Follow Up with [facility] When Only if needed Comments Patient states Chava Elena is her Primary Care Provider. Patient was given a [facility] and was instructed to give it to Dr. Elena when she follows up. Please contact the Patient Resource [facility] at if you need assistance scheduling a Specialist or Primary Care Provider in the future Follow Up with CHAVA ELENA When Within 2 to 3 days Where: [address] [place] [address]- Business (1) Medications What How Much When Instructions Next Dose acetaminophen-hydrocodone (Dime Box 5 mg-325 mg oral tablet) 1 Tablet(s) Oral Every 6 Hours as needed for for pain docusate (Colace 100 mg oral capsule) 1 Capsule(s) Oral Two Times A Day tamsulosin (Flomax 0.4 mg oral capsule) 1 Capsule(s) Oral Every Evening atorvastatin 20 Milligram(s) Oral Every Day lisinopril 10 Milligram(s) Oral Every Day metFORMIN 1,000 Milligram(s) Oral Every Day Take your medications faithfully. Do NOT skip medication. Do NOT stop taking medications without the direction of a physician. Carry a list of your medications with you at all times, and take this medication list with you to your first follow up visit. Report any side effects. Avoid herbal remedies unless discussed with your physician. As part of your treatment plan, your physician may have prescribed a limited course of a controlled substance. This medication may be given to help people with moderate or severe pain or for other medical conditions, but there are risks involved with treatment. Common side effects may include nausea, constipation, drowsiness, sweating, itching, dry mouth, and rash. More serious side effects may include cognitive and motor impairment, like problems with thinking, concentrating, alertness, and movement (e.g. slowed reflexes), and driving and operating heavy machinery can be dangerous. It is important for you to talk to your physician if you have these side effects or questions. These controlled substances can produce physical dependence and be habit-forming if taken for an extended period of time, which means that the body has gotten used to them and may experience withdrawal symptoms if they are abruptly stopped. Withdrawal symptoms can include runny nose, sweating, goose bumps, diarrhea, abdominal cramping, rapid heartbeat, difficulty sleeping, and nervousness. Please dispose of unused and medications per your retail pharmacy guidance. Allergies No Known Allergies No Known Medication Allergies Immunizations This Visit No Immunizations Found Education Materials Dietary Guidelines to Help Prevent Kidney Stones [...] calcium at each meal. Foods that contain 200???500 mg of calcium per serving include: ? 8 oz (237 ml) of milk, fortified nondairy milk, and fortified fruit juice. ? 8 oz (237 ml) of kefir, yogurt, and soy yogurt. ? 4 oz (118 ml) of tofu. ? 1 oz of cheese. ? 1 cup (300 g) of dried figs. ? 1 cup (91 g) of cooked broccoli. ? 1???3 oz can of sardines or mackerel. ??? [...] Rhubarb. ? Beets. ? Potato chips and indian fries. ? Nuts. ??? If you regularly take a diuretic medicine, make sure to eat at least 1???2 fruits or vegetables high in potassium each day. These include: ? Avocado. ? Banana. ? Nolan, prune, carrot, or tomato juice. ? Baked [...] of beer, 5 oz of wine, or 1?? oz of hard liquor. ??? Lose weight [...] Casseroles. Pizza. Lasagna. Frozen meals. Potato chips. Angolan fries. Summary ??? You can reduce your [...] 08/03/2011 Document Revised: 03/19/2017 Document Reviewed: 03/19/2017 [employer] Interactive Patient Education ?? 2019 [employer]. Flank Pain Flank pain is pain in [...] (urine) clear or pale yellow. ??? Take [id number]-uwcykpo and prescription medicines only as told by your doctor. ??? Keep all follow-up visits as told by your doctor. This is important. Contact a doctor if: ??? Medicine does not help your pain. ??? You have new symptoms. ??? Your pain gets worse. ??? You have a fever. ??? Your symptoms last longer than 2???3 days. Get help right away if: ??? [...] 01/15/2009 Document Revised: 12/28/2016 Document Reviewed: 01/10/2016 [employer] Interactive Patient Education ?? 2017 [employer]. Emergency Awareness and Preventative Care STROKE is an EMERGENCY Every Minute Counts Act FAST and Check for these signs: FACE Does the face look uneven? ARM Does one arm drift down? SPEECH Does their speech sound strange? TIME Call at any sign of stroke Stroke Risk Factors Atrial Fibrillation (irregular heartbeat) Diabetes Family history of stroke Heart Disease Heavy alcohol use High Blood Pressure High Cholesterol Physical inactivity and obesity Smoking Cigarette Smoking The facts are clear, cigarette smoking will shorten your life. Smoking can cause many illnesses along the way. As a healthcare provider, we recommend that you stop smoking. Assistance with quitting is available by contacting 3-924-YWUU-NOW. This is a free resource providing counseling, support, and referral. Or you may contact your personal physician. [employer] Suicide Prevention Lifeline: The National Suicide Prevention Lifeline is a national network of local crisis centers that provides free and confidential emotional support to people in suicidal crisis or emotional distress 24 hours a day, 7 days a week. Don't Wait! Stop a Heart Attack Before it Starts What is a heart attack? A heart attack is damage or to a part of the heart from severely decreased or lack of blood flow to the heart. Over time, arteries can become narrow from the buildup of fat and cholesterol, which is called plaque. The plaque can rupture causing a blood clot to form. When the blood clot forms, the artery can become severely narrowed or completely blocked, causing a heart attack. Heart attack is the leading cause of in the [place]. 85% of muscle damage occurs within the first 2 hours. Delay in the recognition of heart attack symptoms increases the chances of . Know the early symptoms of a heart attack: Nausea Feeling of fullness in chest Jaw Pain Pain that travels down one or both arms Fatigue/being tired Anxiety Back Pain Chest pressure, squeezing, or discomfort Shortness of breath Sweating, or a cold sweat Feeling of impending doom There are unusual signs of a heart attack, too! Women, the elderly, and diabetics may present with atypical symptoms: Fainting/dizziness Weakness Confusion Risk Factors for a Heart Attack Some heart disease risk factors, such as age and family history, cannot be changed. Others, like smoking and lack of exercise, can be changed. Smoking High Cholesterol High Blood Pressure Family History Obesity Age Gender (Males are at higher risk) Lack of Exercise Diabetes Diet Stress Excessive Alcohol Intake If you or someone you know is experiencing the signs and symptoms of a heart attack, DON???T DELAY. Call immediately and seek help. If someone collapses, perform CPR! Do not attempt to drive if you are having symptoms of heart attack. Hands-Only CPR Why Hands-Only CPR? Hands-Only CPR has been shown to be as effective as conventional CPR for cardiac arrests that occur outside of a hospital. Survival depends on immediately receiving CPR from someone nearby. How do you perform Hands-Only CPR? There are two easy steps: Call 9-1-1 if you see a teen or adult collapse Push hard and fast in the center of the chest at a beat of 100 beats per minute. Save a life! 4 WAYS TO GET AHEAD OF SEPSIS SEPSIS is a MEDICAL EMERGENCY. Time matters! Infections put you and your family at risk for a life-threatening condition called sepsis. Sepsis is the body's extreme response to an infection. It is life-threatening, and without timely treatment, sepsis can rapidly lead to tissue damage, organ failure, and . Sepsis happens when an infection you already have-in your skin, lungs, urinary tract or somewhere else-triggers a chain reaction throughout your body. 1 PREVENT INFECTIONS Take good care of chronic conditions. Talk to your doctor about getting the recommended vaccines. 2 PRACTICE GOOD HYGIENE Wash your hands frequently. Keep cuts or open sores clean and covered until they are healed. 3 KNOW THE SYMPTOMS Confusion or disorientation Shortness of breath High heart rate Fever, shivering, or feeling very cold Extreme pain or discomfort Clammy or sweaty skin 4 ACT FAST Get medical care IMMEDIATELY if you suspect sepsis or if you have an infection that is not getting better or is getting worse. To learn more about sepsis and how to prevent infections, visit www.cdc.gov/sepsis. Test Results Laboratory or Other Results This Visit (last charted value for your 12/17/2018 visit) Hematology 12/17/18 14:28:00 WBC: 11.9 K/uL -- Normal range between ( 4.5 and 10.5 ) RBC: 5.12 Million/uL -- Normal range between ( 3.93 and 5.22 ) Hct: 36.8 % -- Normal range between ( 34.1 and 44.9 ) Hgb: 11.9 g/dL -- Normal range between ( 11.2 and 15.7 ) Platelet Count: 407 K/uL -- Normal range between ( 163 and 369 ) MCH: 23.2 pg -- Normal range between ( 25.6 and 32.2 ) MCHC: 32.3 Gram/dL -- Normal range between ( 31.5 and 35.7 ) MCV: 71.9 fL -- Normal range between ( 79.0 and 94.8 ) Slide Review: No Eos %: 6.4 % -- Normal range between ( 0.0 and 7.0 ) [place] #: 1.11 K/uL -- Normal range between ( 0.16 and 1.00 ) Eos #: 0.76 -- Normal range between ( 0.00 and 5.00 ) [place] %: 9.3 % -- Normal range between ( 3.5 and 11.1 ) Baso %: 1.0 % -- Normal range between ( 0.0 and 2.0 ) Baso #: 0.12 -- Normal range between ( 0.00 and 2.00 ) RDW: 16.9 % -- Normal range between ( 11.7 and 14.9 ) Neut %: 57.2 % -- Normal range between ( 34.0 and 71.0 ) Neut #: 6.80 K/uL -- Normal range between ( 1.60 and 7.00 ) Lymph %: 26.1 % -- Normal range between ( 19.3 and 53.1 ) Lymph #: 3.10 K/uL -- Normal range between ( 1.00 and 3.50 ) MPV: 10.7 fL -- Normal range between ( 9.4 and 12.4 ) Urinalysis 12/17/18 14:28:00 Ur RBC: TNTC /HPF Urine Nitrite: Negative Urine Leukocyte Esterase: Moderate Ur Epithelial Cells: 10-20 /HPF Urine Appearance: Turbid Urine Glucose Dipstick: Negative Urine Blood Dipstick: Large Urine Type: U CleanCatch Urine Urobilinogen Dipstick: 0.2 EU/dL Ur Calcium Oxalate Crystals: Trace Urine Protein Dipstick: 30 Urine Color: Chery Urine Ketones Dipstick: Negative Urine pH Dipstick: 5.5 -- Normal range between ( 6.0 and 8.0 ) Urine Bilirubin Dipstick: Negative Urine Specific Welches: 1.019 -- Normal range between ( 1.005 and 1.030 ) General Chemistry 12/18/18 12:45:00 Glucose POC2: 116 mg/dL -- Normal range between ( 70 and 110 ) Device Comment 1: Device Comment 1 12/18/18 06:52:00 Creatinine Level: 0.80 mg/dL -- Normal range between ( 0.55 and 1.02 ) Sodium Level: 140 mmol/L -- Normal range between ( 136 and 146 ) Potassium Level: 4.2 mmol/L -- Normal range between ( 3.5 and 5.1 ) Chloride Level: 110 mmol/L -- Normal range between ( 102 and 112 ) Carbon Dioxide Level: 23 mmol/L -- Normal range between ( 21 and 32 ) Anion Gap: 11 -- Normal range between ( 9 and 20 ) Bun/Creatinine: 20.0 -- Normal range between ( 8.0 and 20.0 ) Calcium Level: 8.4 mg/dL -- Normal range between ( 8.4 and 10.1 ) eGFR : >60 mL/min/1.73m2 eGFR NonAfrican: >60 mL/min/1.73m2 Glucose Level: 119 mg/dL -- Normal range between ( 74 and 106 ) Blood Urea Nitrogen: 16 mg/dL -- Normal range between ( 7 and 22 ) 12/17/18 19:11:00 Lactic Acid Level: 1.4 mmol/L -- Normal range between ( 0.4 and 2.0 ) Endocrinology 12/17/18 16:09:00 HCG Serum Quant: <1.0 mIU/mL Diagnostic Radiology 12/17/18 14:56:06 CR Abdomen 1 Vw: CR Abdomen 1 Vw Patient Name:ENEIDA REY I have received and understand this information and was given the opportunity to ask questions. Patient/Loom Fixer Name: Patient/Loom Fixer Signature: Relationship to Patient: Clinician/Hospital Loom Fixer Signature: Date: documented in this encounter Plan of Treatment Not on file documented as of this encounter Visit Diagnoses Not on filedocumented in this encounter
--- OUTSIDE RECORDS SUMMARY | 2024-10-26 18:45 | XMS_ITS | Encounter Summary ---
Author Organization [employer] ([place], [place], [place], [place]) Address [address] [place] [address] Care Team Providers Care Sales Operations Consultant Name Role Phone Unavailable Primary Care Provider Unavailabl e Encounter Details Date Type Department Care Team (Late st Contact Info) Description 12/17/2018 Transcribed Document [facility] [place] [facility] [place] [address] ProviderJessee MD [address] [place] [id number] Social History Tobacco Use Types Packs/Day Years [...] Conversion Note - Jessee Rich MD - 12/17/2018 4:12 PM CDT Consult Phone Call Documentation Entered On: 12/17/2018 17:10 EDT Performed On: 12/17/2018 16:12 EDT by [facility] Call for Consults Consult Phone Call/Page Attempt : First call Consult Reason : left flank pain, kidney stones Physician Requesting Consult : CLAUDIO PAREKH MD Physician Requested for Consult : RACH MOREJON MD-URO Provider Team Notified Name : Urology Physician Covering for Consult : MARE BOBBY MD Date and Time Call Returned : 12/17/2018 17:09 EDT Amanda Roblero [facility] Coord - 12/17/2018 17:08 EDT documented in this encounter Plan of Treatment Not on file documented as of this encounter Visit Diagnoses Not on filedocumented in this encounter
--- OUTSIDE RECORDS SUMMARY | 2024-10-26 18:45 | XMS_ITS | Encounter Summary ---
Author Organization [employer] ([place], [place], [place], [place]) Address [address] [place] [address] Care Team Providers Care Research Development Manager Name Role Phone Unavailable Primary Care Provider Unavailabl e Encounter Details Date Type Department Care Team (Late st Contact Info) Description 12/17/2018 Transcribed Document [facility] [place] [address] [place] [address] ProviderJessee MD [address] [place], [place] [phone] Social History Tobacco Use Types Packs/Day Years [...] EDT by Leslie Moya Rn Intervention Information: HYDROmorphone Performed by Raissa Morris RN on 12/17/2018 15:44:00 EDT HYDROmorphone,1mg IV Push,Peripheral Line 1,Pain (Severe 7-10) Pain Assessment Pain Assessment : [...]
--- OUTSIDE RECORDS SUMMARY | 2024-10-26 18:45 | XMS_ITS | Encounter Summary ---
Author Organization [employer] ([place], [place], [place], [place]) Address [address] [place] [address] Care Team Providers Care Singing Waiter Or Waitress Name Role Phone Unavailable Primary Care Provider Unavailabl e Encounter Details Date Type Department Care Team (Late st Contact Info) Description 12/17/2018 Transcribed Document [facility] [place] Family Medicine [address] [place] [address] ProviderJessee MD [address] [place], [place] [id number] Social History Tobacco Use Types Packs/Day Years [...] Historical ProviderMD - 12/17/2018 4:12 PM CDT Education-(VTE) / (DVT) Entered On: 12/17/2018 17:44 EDT Performed On: 12/17/2018 16:12 EDT by Cindy Klein Rn Teaching/Learning Assessment Barriers To Learning : None evident Highest Level of Education : High school Learning Style Preferences Patient : Verbal explanation Learning Style Preferences Family : Verbal explanation Cindy Klein Rn - 12/17/2018 17:44 EDT documented in this encounter Plan of Treatment Not on file documented as of this encounter Visit Diagnoses Not on filedocumented in this encounter
--- OUTSIDE RECORDS SUMMARY | 2024-10-26 18:45 | XMS_ITS | Encounter Summary ---
Author Organization [employer] ([place], [place], [place], [place]) Address [address] [place] [address] Care Team Providers Care Ethnology Teacher Name Role Phone Unavailable Primary Care Provider Unavailabl e Encounter Details Date Type Department Care Team (Late st Contact Info) Description 12/18/2018 Transcribed Document [facility] [place] Family Medicine [facility] [place] [address] ProviderJessee MD [address] [place] [address] [phone] Social History Tobacco Use Types Packs/Day Years [...] Conversion Note - Jessee ProviderMD - 12/18/2018 12:08 PM CDT [facility] Main OR IntraOp Summary Primary Physician: RACH MOREJON MD-URO Finalized Date/Time: 12/20/18 17:44:42 Pt. Name: NILDA REY /Sex: 1975 Female Med Rec #: [id number] Physician: CLAUDIO PAREKH MD Financial #: [id number] Pt. Type: O Room/Bed: [facility]/1 Admit/Disch: 12/17/18 15:48:00 - 12/18/18 16:25:00 Institution: [facility] IntraOp Case Attendance Entry 1 Entry 2 Entry 3 Case Attendee RACH MOREJON MD-URO STONERTHERESA, Maintenance Millwright MARE BOBBY MD Role Performed Surgeon/Proceduralist, GRAPHOTYPE OPERATOR/Nurse Metal Furniture Assembly Supervisor Resident First Time In 12/18/18 11:47:00 12/18/18 11:47:00 12/18/18 11:47:00 Time Out 12/18/18 12:40:00 12/18/18 12:40:00 12/18/18 12:40:00 Procedure Ureteroscopy(Left), Ureteroscopy(Left), Ureteroscopy(Left), Ureteral Stone Ureteral Stone Ureteral Stone Manipulation Manipulation Manipulation Laser(Left), Ureteral Laser(Left), Ureteral Laser(Left), Ureteral Stent Insertion Stent Insertion Stent Insertion Other Attendee Superficial Wound Closed By: Last Modified By: Martine June RN Poff, Janie, RN Poff, Janie, RN 12/18/18 12:45:09 12/18/18 12:45:09 12/18/18 12:45:09 Entry 4 Entry 5 Entry 6 Case Attendee ARMANDO PARKER MD Poff, Janie, MAI ALVAREZ Role Performed Anesthesiologist of Drying Rack Changer, First Scrub, First Record Time In 12/18/18 11:47:00 12/18/18 11:47:00 12/18/18 11:47:00 Time Out 12/18/18 12:40:00 12/18/18 12:40:00 12/18/18 12:40:00 Procedure Ureteroscopy(Left), Ureteroscopy(Left), Ureteroscopy(Left), Ureteral Stone Ureteral Stone Ureteral Stone Manipulation Manipulation Manipulation Laser(Left), Ureteral Laser(Left), Ureteral Laser(Left), Ureteral Stent Insertion Stent Insertion Stent Insertion Other Attendee Superficial Wound Closed By: Last Modified By: Martine June RN Poff, Janie, RN Poff, Janie, RN 12/18/18 12:45:09 12/18/18 12:45:09 12/18/18 12:45:09 Entry 7 Case Attendee SISSY ROCA Role Performed Laser Insurance Verification Specialist Time In 12/18/18 11:47:00 Time Out 12/18/18 12:40:00 Procedure Ureteroscopy(Left), Ureteral Stone Manipulation Laser(Left), Ureteral Stent Insertion Other Attendee Superficial Wound Closed By: Last Modified By: Martine June RN 12/18/18 12:45:09 [facility] IntraOp Case Attendance Audit 12/18/18 12:45:09 Automotive Porter: LYNETTE Modifier: LYNETTE 1 <+> Time Out 1 <*> Procedure Ureteroscopy(Left), Ureteral Stone Manipulation Laser(Left) 2 <+> Time In 2 <+> Time Out 2 <*> Procedure Ureteroscopy(Left), Ureteral Stone Manipulation Laser(Left) 3 <+> Time In 3 <+> Time Out 3 <*> Procedure Ureteroscopy(Left), Ureteral Stone Manipulation Laser(Left) 4 <+> Time In 4 <+> Time Out 4 <*> Procedure Ureteroscopy(Left), Ureteral Stone Manipulation Laser(Left) 5 <+> Time In 5 <+> Time Out 5 <*> Procedure Ureteroscopy(Left), Ureteral Stone Manipulation Laser(Left) 6 <+> Time In 6 <+> Time Out 6 <*> Procedure Ureteroscopy(Left), Ureteral Stone Manipulation Laser(Left) 7 <+> Time In 7 <+> Time Out 7 <*> Procedure Ureteroscopy(Left), Ureteral Stone Manipulation Laser(Left) [facility] IntraOp Case Times Entry 1 Patient In Room Time 12/18/18 11:47:00 Out Room Time 12/18/18 12:40:00 Anesthesia Start Time 12/18/18 11:47:00 Stop Time 12/18/18 12:40:00 Surgery / Procedure Times Start Time 12/18/18 12:08:00 Stop Time 12/18/18 12:35:00 Last Modified By: Martine June RN 12/18/18 12:43:59 [facility] IntraOp Case Times Audit 12/18/18 12:43:59 Automotive Porter: LYNETTE Modifier: LYNETTE <+> 1 Out Room Time <+> 1 Stop Time <+> 1 Stop Time [facility] IntraOp Communication Entry 1 Communication To Family/Significant other Comment START Communication By Martine June RN Date and Time 12/18/18 12:08:00 Last Modified By: Martine June RN 12/18/18 12:28:12 [facility] IntraOp Cultures and Spec Summary Entry 1 Cultrures and Specimens Specimen Ordered: Yes Test(s) Culture(s)/Microbiology Requested/Final Disposition Last Modified By: Martine June RN 12/18/18 12:29:04 General Comments: URINE CULTURE [facility] IntraOp Departure from OR Entry 1 Integumentary Assessment Integumentary WDL Assessment WDL Transfer/Handoff Transfer to PACU Phase I Handoff Method Phone call Handoff Reported to YURY VASQUEZ RN Post-op Transport Stretcher/Gurney Via Patient Transport THERESA KWON Crna Accompanied by Last Modified By: Martine June RN 12/18/18 12:30:29 [facility] IntraOp Fire Risk Assessment Entry 1 Fire Info Surgical Site or 0- No Incision Above the Xyphoid Open O2 Source 1- Yes (Mask or Cannula) Available Ignition 1- Yes (ESU, Laser, Light Source) Fire Risk 2 Assessment Score Fire Score Fire Risk Yes Assessment Complete Fire Risk Martine June RN Assessment Verified By Fire Risk 12/18/18 12:07:00 Assessment Verified Date/Time Fire Risk Standard Fire Yes Safety Precautions Followed Last Modified By: Martine June RN 12/18/18 12:24:30 [facility] IntraOp General Case Machinist Job Setter 1 Case Information OR Cysto 01 [facility] Case Level 1 Room Verified Yes Wound Class II - Clean-Contaminated Specialty SN Urology Anesthesia Type General ASA Class 2 Diagnosis Preop Diagnosis LEFT URETERAL STONE Postop Same As Preop Yes Postop Diagnosis LEFT URETERAL STONE Last Modified By: Martine June RN 12/18/18 12:32:00 [facility] IntraOp Implant Log Entry 1 Type Implant (Synthetic) Implant Log Implant Type Other Implant STENT URET BRAID + Identification [id number] Description Implant Quantity 1 Implant Site LEFT URETER Implant [id number] Identification Lot Number Implant White Identification Sci:Urology/Gynecology Data Manager Name: Implant [id number] Identification Catalog Number Implant Has an Yes Expiration Date Implant Expiration 10/06/21 Date Tissue Implant Last Modified By: Martine June RN 12/18/18 12:46:42 [facility] IntraOp Intraoperative Assessment Entry 1 Handoff Method Online nursing summary Valid History / Yes Physical in Chart Preoperative Yes Checklist Reviewed/Evaluated Allergies Reviewed Yes Patient is Latex No Sensitive Isolation Not applicable Precautions Noted Level of WDL Consciousness (WDL = Alert, Oriented to Person, Place, and Time) Skin Assessment Yes Verified Present Upon IVs Arrival to OR Last Modified By: Martine June RN 12/18/18 12:27:50 [facility] IntraOp Intraoperative Equipment Entry 1 Type Monitoring Equipment Equipment Other Intraop Monitoring Electrocardiogram Three lead placement (ECG) Electrode Placement Blood Pressure Non-Invasive BP Device Source Blood Pressure Arm, right upper Location Pulse Oximeter Hand, left Probe Site Antiembolic Devices Antiembolic Devices Sequential compression device, knee high Antiembolic Device Bilateral Location Antiembolic Device [id number] ID Number Scopes Photo/Video Documentation Photo No Video No Intraop Equipment Sequential compression Comment devices on and in operation prior to induction. Last Modified By: Martine June RN 12/18/18 12:49:13 [facility] IntraOp Intraoperative Equipment Audit 12/18/18 12:49:13 Automotive Porter: LYNETTE Modifier: LYNETTE Alonso <*> Antiembolic Device ID Number [id number] [facility] IntraOp Medication Admin Entry 1 Entry 2 Medication/Irrigant THU IRR NACL 0.9PCT lidocaine 2% urojet [id number] 10ml jelly - [id number] Combo Med List Time Administered 12/18/18 11:47:00 12/18/18 12:35:00 Route of Irrigation LOCAL, URETHRA Administration Dose Dose 10 Unit of Measure ml Volume Administered By MARE BOBBY MD HIGGINS, MARGARET, MD Procedure Irrigation Irrigant Volume In 1000 mL Irrigant Volume Out 1000 mL Last Modified By: Martine June RN Poff, Janie, RN 12/18/18 12:43:26 12/18/18 12:43:26 [facility] IntraOp Patient Positioning Entry 1 Procedure Ureteroscopy(Left), Ureteral Stone Manipulation Laser(Left), Ureteral Stent Insertion Body Position Lithotomy Left Arm Position Resting at side Right Arm Position Resting at side Left Leg Position Secured in Leg [place] Right Leg Position Secured in Leg [place] Feet Uncrossed Yes Pressure Points Yes Checked Positioning Devices Head Rest, Table, Cysto, Pad, Elbow, Stirrups/Leg [place], Cysto, Pad, Elbow Positioned By Martine June RN, THERESA KWON, [place], MARE BOBBY MD Position Verified Positioning Yes Verified by Anesthesia Positioning Yes Verified by Surgeon Last Modified By: Martine June RN 12/18/18 12:45:11 [facility] IntraOp Patient Positioning Audit 12/18/18 12:45:11 Automotive Porter: LYNETTE Modifier: LYNETTE Alonso <*> Procedure Ureteroscopy(Left), Ureteral Stone Manipulation Laser(Left) [facility] IntraOp Sign In Entry 1 Patient, Site, Yes Procedure Identified Surgical Consent Yes Confirmed Relevant Surgical Yes Documents Available Surgical Site Yes Marked by person performing procedure Anesthesia Machine Yes Check Completed Medication Checks Yes Completed Allergies Yes Airway Difficult Yes Airway/Aspiration Risk Difficult Yes Airway/Aspiration Intervention Equipment Available Blood Loss Risk Yes Blood Loss Yes Intervention Equipment Prepared and Ready Blood Identifiers Not applicable Verified Per Policy Hypothermia Risk Yes Warming Measures Yes Taken Last Modified By: Martine June RN 12/18/18 12:18:55 [facility] IntraOp Sign Out Entry 1 RN Confirmation Surgical Yes Procedure(s) Identified Instrument, Sponge N/A and Sharps Counts Correct/Documented Equipment Problems N/A Documented Specimen Labeled Yes Correctly Urinary Catheter N/A Documented in IView Arreola Patient Yes Recovery Concerns Reviewed with Anesthesia Provider, Surgeon and RN Arreola Patient Yes Management Concerns Reviewed with Anesthesia Provider, Surgeon and RN Safety Checklist Yes Elements Complete? RN Sign Out Martine June RN Signature RN Sign Out 12/18/18 12:43:00 Signature Date/Time Plan of Care Outcome - Fire Risk OUTCOME STATEMENT: Goal met Patient is free from injury related to surgical fire Plan of Care Outcome - Pt Positioning OUTCOME STATEMENT: Goal met Absence of signs and symptoms of positioning injury. Plan of Care Outcome - Skin Prep OUTCOME STATEMENT: Goal met Intraoperative care is consistent with measures to prevent infection Plan of Care Outcome - Xray/Images OUTCOME STATEMENT: Goal met Absence of observable signs or symptoms of radiation injury Plan of Care Outcome - Counts OUTCOME STATEMENT: Goal met Absence of signs and symptoms of injury related to extraneous objects Last Modified By: Martine June RN 12/18/18 12:43:39 [facility] IntraOp Skin Prep Entry 1 Procedure Ureteroscopy(Left), Ureteral Stone Manipulation Laser(Left), Ureteral Stent Insertion Prescribed Yes Pre-Surgical Prep Completed Prep Area Genitalia Intraop Prep Integumentary WDL Assessment WDL Prep Agents Betadine scrub, Betadine solution Prep by Martine June RN Hair Removal Methods No hair removal performed Last Modified By: Martine June RN 12/18/18 12:45:11 [facility] IntraOp Skin Prep Audit 12/18/18 12:45:11 Automotive Porter: CORRINAMELODIEBERENICE Modifier: LYNETTE 1 <*> Procedure Ureteroscopy(Left), Ureteral Stone Manipulation Laser(Left) [facility] IntraOp Surgical Procedures Entry 1 Entry 2 Entry 3 Procedure Ureteroscopy Ureteral Stone Ureteral Stent Insertion Manipulation Laser Modifiers Left Left Additional LEFT URETEROSCOPY, Procedure LASER LITHOTRIPSY, Description BASKET STONE EXTRACTION, LEFT URETERAL STENT INSERTION Primary Procedure Yes No No Primary Surgeon RACH MOREJON MD-URO RACH MOREJON MD-URO RACH MOREJON MD-URO Start 12/18/18 12:08:00 12/18/18 12:08:00 12/18/18 12:08:00 Stop 12/18/18 12:35:00 12/18/18 12:35:00 12/18/18 12:35:00 Physician States Cecum Reached Anesthesia Type General General General Specialty SN Urology SN Urology SN Urology Wound Class II - Clean-Contaminated II - Clean-Contaminated II - Clean-Contaminated Last Modified By: Martine June RN Poff, Janie, RN Poff, Janie, RN 12/18/18 12:45:05 12/18/18 12:45:05 12/18/18 12:45:05 [facility] IntraOp Surgical Procedures Audit 12/18/18 12:45:05 Automotive Porter: LYNETTE Modifier: LYNETTE 1 <*> Procedure Ureteroscopy 1 <+> Stop 1 <*> Additional Procedure Description LEFT URETEROSCOPY, LASER LITHOTRIPSY, BASKET STONE EXTRACTION, <+> 2 Stop <+> 3 Procedure <+> 3 Primary Procedure <+> 3 Primary Surgeon <+> 3 Specialty <+> 3 Start <+> 3 Stop <+> 3 Wound Class <+> 3 Anesthesia Type [facility] IntraOp Temp Regulation Devices Entry 1 Temp Regulation Temperature Warm blankets Regulation Device Temperature Upper body Regulation Site Temperature Martine June RN Regulation Device Applied by Temperature Monitored per Regulation Comment anesthesia, natasha hugger available Last Modified By: Martine June RN 12/18/18 12:45:33 [facility] IntraOP Time Out Entry 1 Procedure to be Ureteroscopy(Left), Performed Ureteral Stone Manipulation Laser(Left), Ureteral Stent Insertion Time Out Time Out Pause Time 12/18/18 12:07:00 All activity Yes suspended (unless life threatening emergency) Team Verbally Correct patient Confirms Information identity, Correct side and site are marked, Consent form is present and accurate, Agreement on the procedure to be done, Correct patient position, Relevant images/results properly labeled/appropriately displayed, Confirm antibiotics have been administered, Confirm the skin prep has dried, Confirm prosthesis/implant/devic e is present, Performed in location of procedure after prepped/draped Antibiotic Yes Prophylaxis Administered Or In Progress Within the Last 60 Minutes Beta Igor N/A Administered Venous Yes Thromboembolism Prophylaxis Required Anticipated Critical Events Surgeon None expected Anesthesia Provider None expected Nursing Assures Sterility of instruments, Implant Availability Essential Imaging Yes Labeled and Displayed Last Modified By: Martine June RN 12/18/18 12:45:12 [facility] IntraOP Time Out Audit 12/18/18 12:45:12 Automotive Porter: LYNETTE Modifier: LYNETTE Alonso <*> Procedure to be Performed Ureteroscopy(Left), Ureteral Stone Manipulation Laser(Left) Case Comments <None> Finalized By: RAMOS AMBRIZ Document Signatures Signed By: Martine June RN 12/18/18 12:52 RAMOS AMBRIZ 12/20/18 17:44 Unfinalized History Date/Time Username Reason for Unfinalizing Freetext Reason for Unfinalizing 12/20/18 17:43 [email or web address] Correct Billing documented in this encounter Plan of Treatment Not on file documented as of this encounter Visit Diagnoses Not on filedocumented in this encounter
--- OUTSIDE RECORDS SUMMARY | 2024-10-26 18:45 | XMS_ITS | Data Portability ---
Author Organization [place] - [facility] [place] & MARIO Feliciano ADMIN Address [address] [place] [id number] Care Team Providers Care Button Sewer Hand Name Role Phone HELDER MENENDEZ Primary Care Provider PIEDAD SEWELL Sales Forecast Analyst Assessment No assessment recorded. Plan of Treatment Reminders Order Date Submit Date Provider Last Modified By Organization Details Last Modified Time Details Appointments None record ed. Lab None record ed. Referral None record ed. Procedures None record ed. Surgeries None record ed. Imaging None record ed. Medication Orders None record ed. Patient TargetsNo targets recorded. Patient Instructions Encounter Date Encounter Id Patient Instructions Last Modified By Organization Details Last Modified Time 06/11/2023 [id number] Discussed bubbain g findings with patient. She has no evidence of a nasal septal hematoma or significant nasal septal fracture. No significant cosmetic deformity of the nasal bones. No surgery recommended at this time but protection of the face especially important over the next 6 weeks to prevent re-injury. [email or web address] Not available 06/21/2023 13:58:35 Reason for Referral None Reported. Results Created Date Observation Date Name Description Value Unit Range Abnormal Flag Note LastModifiedBy Organization Detail LastModifiedTime 06/11/19 24 06/06/2023 CT, face, w/o contr ast No observ ation record ed. BARCODE Not Available 2023 09:11:37 06/11/19 24 06/06/2023 CT, brain , w/o contr ast No observ ation record ed. BARCODE Not Available 2023 09:11:37 Result Notes None recorded. Problems Name Problem SNOMED Code Status Onset Date Resolution Date Notes Provider Name and Address Organization Details Recorded Time Hydronephrosis due to calculus of kidney and ureter 393607908 Active Katheryn Mercado null, ANA - [facility] & [place] 4 15:32:05 Kidney stone 40364944 Active Katheryn Camachoence null, ANA - [facility] - [place] & [place] 4 15:32:05 Problem Notes None recorded. Procedures Surgical History Date Name Laterality Status Provider Name and Address Organization Details Recorded Time 4 completed Katheryn PEREZ - [facility] - [place] & [place] 06/11/2023 15:51:20 3 Date of Last Pap Smear completed Katheryn PEREZ - DANANT [facility] & [place] 06/11/2023 15:51:20 3 Date of Last Colonoscopy completed Katheryn Peterson [facility] & [place] 06/11/2023 15:51:20 3 Other completed Katheryn PEREZ - [facility] & [place] 06/11/2023 15:51:46 2 Other completed Katheryn Camachoence ANA - [facility] - [place] & [place] 06/11/2023 15:51:46 Imaging Results None recorded. Procedure Notes None recorded. Medical Equipment None Reported. Allergies Allergen ID Allergen Name Allergen Category Reaction Reaction Severity Criticality Documentation Date Start Date Code Code System Note Provider Name and Address Organization Details Recorded Time 453397 No known allergy (situatio n) Not available Not available Not available Not available 06/11/2023 22029 6003 SNOMED Katheryn saucedo, ANA - [facility] & [place] 4 15:31:56 Medications Name Sig Start Date Stop Date Status Note LastModified by Organization Details LastModified Time ketorolac 15 mg/mL injection solution 15 mg by injection route. 07/21 completed Not Available Not Available Not Available Flomax 0.4 mg capsule Take 0.4 mg by oral route. 06/11 completed Not Available Not Available Not Available atorvastati n 40 mg tablet TAKE 1 TABLET BY MOUTH AT NIGHT AT BEDTIME active Not Available Not Available No t Available metformin 500 mg tablet Take 1000 mg by oral route. 06/11 completed Not Available Not Available Not Available atorvastati n 20 mg tablet Take 20 mg by oral route. 06/11 completed Not Available Not Available Not Available nicotine 14 mg/24 hr daily transdermal patch 1 pat by transderm . route. 07/21 completed Not Available Not Available Not Available hydrocodone 5 mg-acetamin ophen 325 mg tablet 1 tablet by oral route. active Not Available Not Available No t Available sulfamethox azole 800 mg-trimetho prim 160 mg tablet 06/11 completed Not Available Not Available Not Available hydrocodone 10 mg-acetamin ophen 325 mg tablet 1 tablet by oral route. 07/21 completed Not Available Not Available Not Available amoxicillin 500 mg tablet TAKE 1 TABLET BY MOUTH EVERY 8 HOURS UNTIL ALL TAKEN 06/11 completed Not Available Not Available Not Available oxycodone-a cetaminophe n 5 mg-325 mg tablet TAKE 1 TABLET BY MOUTH EVERY 4 HOURS NEEDED FOR PAIN SCALE 4-6 06/11 completed Not Available Not Available Not Available amoxicillin 875 mg tablet TAKE 1 TABLET BY MOUTH TWICE DAILY WITH FOOD FOR 10 DAYS 06/11 completed Not Available Not Available Not Available phenazopyri dine 100 mg tablet active Not Available Not Available Not Available baclofen 10 mg tablet 06/11 completed Not Available Not Available Not Available cephalexin 500 mg capsule 06/11 completed Not Available Not Available Not Available pantoprazol e 40 mg tablet,ranjith yed release 40 mg by oral route. 07/21 completed Not Available Not Available Not Available oseltamivir 75 mg capsule TAKE 1 CAPSULE BY MOUTH TWICE DAILY FOR 5 DAYS 06/11 completed Not Available Not Available Not Available metformin 1,000 mg tablet TAKE 1 TABLET BY MOUTH TWICE DAILY WITH MEALS active Not Available Not Available No t Available lisinopril 10 mg tablet 10 mg by oral route. 06/11 completed Not Available Not Available Not Available hyoscyamine 0.125 mg sublingual tablet 06/11 completed Not Available Not Available Not Available Mapap (acetaminop hen) 325 mg tablet 650 mg by oral route. 07/21 completed Not Available Not Available Not Available sodium chloride 0.9 % intravenous solution 1000 mL by intraven. route. 07/21 completed Not Available Not Available Not Available ibuprofen 600 mg tablet TAKE 1 TABLET BY MOUTH EVERY 6 HOURS NEEDED FOR PAIN SCALE 1-3 06/11 completed Not Available Not Available Not Available ondansetron 4 mg disintegrat ing tablet 06/11 completed Not Available Not Available Not Available enoxaparin 40 mg/0.4 mL subcutaneou s syringe 40 mg by sub-q route. 07/21 completed Not Available Not Available Not Available sodium chloride 0.9 % (flush) injection syringe 10 mL by injection route. 07/21 completed Not Available Not Available Not Available nitrofurant oin monohydrate /macrocryst als 100 mg capsule 06/11 completed Not Available Not Available Not Available ondansetron HCl (PF) 4 mg/2 mL injection solution 4 mg by injection route. 07/21 completed Not Available Not Available Not Available lidocaine 2 % mucosal jelly in applicator 10 mL by mucous mem route. 07/21 completed Not Available Not Available Not Available morphine 2 mg/mL intravenous syringe 2 mg by intraven. route. 07/21 completed Not Available Not Available Not Available Procto-Med HC 2.5 % topical cream perineal applicator INSERT RECTALLY TO THE AFFECTED AREA TWICE A DAY NEEDED FOR HEMORRHOI DS 06/11 completed Not Available Not Available Not Available Ozempic 0.25 mg or 0.5 mg (2 mg/1.5 mL) subcutaneou s pen injector 06/11 completed Not Available Not Available Not Available Ozempic 1 mg/dose (4 mg/3 mL) subcutaneou s pen injector INJECT 1MG SUBUCUTAN EOUSLY ONCE A WEEK 06/11 completed Not Available Not Available Not Available Ozempic 2 mg/dose (8 mg/3 mL) subcutaneou s pen injector INJECT 2 MG SUBCUTANE OUSLY ONCE A WEEK active Not Available Not Available No t Available Ozempic 0.25 mg or 0.5 mg (2 mg/3 mL) subcutaneou s pen injector 06/11 completed Not Available Not Available Not Available Vitals Date Recorded Body height Body mass index (BMI) Body weight Body temperature Provider Name and Address Organization Details Last Updated DateTime 06/11/2023 165.1 cm 29.1 kg/m2 90799.66 g 97.8 [degF] Katheryn PEREZ - [facility] & [place] 06/11/2023 15:52:07 Social History Question Answer Notes LastModified by Organizat ion Details LastModified Time Tobacco Smoking Status Current Every Day Smoker Katheryn Mercado [facility], ANA [facility] & [place] 06/11/2023 15:51:40 Do You Have An Advance Directive? No Information not available 06/11/2023 Are You Blind Or Do You Have Difficulty Seeing? No Information not available 06/11/2023 What Was The Date Of Your Most Recent Tobacco Screening? 06/11/2023 Information not available 06/11/2023 Are You Passively Exposed To Smoke? No Information not available 06/11/2023 How Much Tobacco Do You Smoke? 0.5 PPD Information not available 06/11/2023 How Many Years Have You Smoked Tobacco? 30 Information not available 06/11/2023 Sex: Unknown Functional Status Question Answer Note LastModified by Organizat ion Details LastModified Time Do you use any illicit or recreational drugs? No Information not available 06/11/2023 What is your level of alcohol consumption? Occasional Information not available 06/11/2023 Do you or have you ever used smokeless tobacco? Never used smokeless tobacco Information not available 06/11/2023 What is your exercise level? Moderate Information not available 06/11/2023 Mental Status Question Answer Note LastModified by Organization D etails LastModified Time Do you feel stressed (tense, restless, nervous, or anxious, or unable to sleep at night)? [id number] Information not available 06/11/2023 Family History Nothing Reported. Medical History Condition Response Diabetes Y Hyperlipidemia Y Hypertension Y High Cholesterol Y Gynecological History Statement/Question Response Abnormal Pap N 05/10/2023 Date of Last Colonoscopy 10/20/2022 Date of LMP 12/20/2022 Sexually Active? N Menses Monthly N Date of Last Pap Smear 12/21/2022 Current Control Method None Obstetrics History GPAL:G 0 P 0 0 0 0 Past Encounters Encounter ID Performer Location Encounter Start Date Encounter Closed Date Diagnosis/Indication Diagnosis SNOMED-CT Code Diagnosis ICD10 Code Diagnosis Note [id number] Lakeshia Cadena MD [facility] [address] [phone] 06/11/2023 15:18:01 06/11/2023 16:02:03 Closed fracture of nasal bones 34029609 S02.2XXA Injury of face 226694283 S09.93XA Health Concerns Section Related Observation LastModified by Organization Detai ls LastModified Time None Recorded Concern Status LastModified by Organization Details LastModified Time None Recorded Advance Directives Directive N: Payers Insurance Date Sequence Insurance Name Policy Number Policy [place] Covered Member ID [place] Member ID Guarantor Name 11/09/2023 1 [place] [id number] Freda Rai [id number] Freda Rai 11/09/2023 [employer] [id number] [employer] Freda Rai Notes Date Note Type Note Provider Name and Address Organization Details Recorded Time 06/11/2023 text/html 06/11/23- patient is here for a ED follow up on facial injury from a fall, she complains of headaches between her eyes, facial pain and pressure, no trouble breathing, she has swelling but has gone down since the fall. Lakeshia Cadena MD [address] [facility], [place], [address], [facility] - [place] & [place] 06/21/2023 13:58:47 OBGyn Episode No OBEpisode recorded.
--- OUTSIDE RECORDS SUMMARY | 2024-10-26 18:45 | XMS_ITS | Encounter Summary ---
Author Organization [employer] ([place], [place], [place], [place]) Address [address] [place] [address] Care Team Providers Care Job Developer Name Role Phone Unavailable Primary Care Provider Unavailabl e Encounter Details Date Type Department Care Team (Late st Contact Info) Description 12/18/2018 Transcribed Document [facility] Family Medicine formerly [facility] [place] [address] ProviderJessee MD [address] [place] [address] [id number] Social History Tobacco Use Types Packs/Day Years [...] Conversion Note - Historical ProviderMD - 12/18/2018 12:51 PM CDT DATE OF PROCEDURE:12/18/2018 PREOPERATIVE DIAGNOSIS(ES): Left ureteral calculus. POSTOPERATIVE DIAGNOSIS(ES): Left ureteral calculus. PROCEDURE: 1. Cystoscopy. 2. Left ureteroscopy and laser lithotripsy with basket stone extraction. 3. Left ureteral stent placement. SURGEON: Kadeem Weaver M.D. RESIDENT: Alison Malcolm M.D. (R) ANESTHESIA: General. SPECIMENS: Bladder urine sent for culture. DRAINS: 4.8 Malawian x 24 cm double-J ureteral stent with strings. INDICATIONS: Ms. Rai is a 43-year-old female with a history of recurrent nephrolithiasis, who presented to the emergency department yesterday with intractable left flank pain, nausea, and vomiting. Outside CT report, reported an 8.5 ureteropelvic junction stone. However, plain film showed a calcification low towards the bladder. After discussing her options, she agreed to proceed to the operating room for laser lithotripsy and stone removal. FINDINGS: 1. Normal-appearing bladder with squamous metaplasia around the left ureteral orifice. 2. Very soft bright yellow stone, roughly 8 mm x 3 mm identified in the distal ureter. This was easily fragmented with all fragments removed. Capacious ureter with no other fragments remaining at the end of the case. 3. Yen pyeloscopy demonstrates no additional renal stones in the left collecting system. 4. Successful deployment of left ureteral stent. DESCRIPTION OF PROCEDURE: After being correctly identified in the preoperative holding area, the patient was taken back to the operating room, placed on the table in supine position. Bilateral SCDs were placed and general anesthesia was induced. The patient was placed in lithotomy position, prepped and draped in normal sterile fashion. A time-out was performed confirming correct patient, procedure, and administration of scheduled ceftriaxone. A well lubricated 22-Malawian rigid cystoscope was inserted per urethra. Urine was collected for specimen. A thorough cystoscopy was performed with the above noted normal findings. A Sensor wire was advanced up through the left ureteral orifice up to the left renal pelvis under fluoroscopic guidance. No fluid purulence was identified draining. The bladder was drained. A semirigid ureteroscope was advanced alongside the Sensor wire. The stone was immediately identified several centimeters proximal to the intramural tunnel. A 200 micron laser fiber was used to fragment the stone. This was found to be extremely soft and fragmented in many pieces with a little amount of energy used. A 1.9-Malawian zero tip nitinol basket was used to remove all the fragments into the bladder. The semirigid ureteroscope was advanced up to the UPJ finding no additional stones. This was removed and the bladder was drained. A flexible ureteroscope was advanced over the Sensor wire up to the renal pelvis. Yen pyeloscopy was performed with no additional stones or fragments identified. This was slowly removed finding nothing more than stone dust in the ureter. The Sensor wire was replaced through the scope which was then removed. A 4.8-Malawian x 24 cm double-J ureteral stent was then deployed in standard fashion. Correct proximal and distal curl was confirmed fluoroscopically. The bladder was drained. The stent strings were secured to the inner thigh with Tegaderm. 2% viscous lidocaine was inserted per urethra. The patient was returned to supine position, extubated, and awakened. She was taken to PACU in stable condition. She tolerated the procedure well without any immediate complication. Dr. Weaver was present for all salazar portions of the procedure. DISPOSITION: The patient will recover in the PACU after which she will be discharged home. She will remove the stent by pulling the strings at home on December 23. She will then follow up with her established urologist Dr. Salazar in the coming weeks. Dictated By: Alison Malcolm M.D. (R) For Gilda Gonsalez M.D. Dict: 12/18/2018 12:51:44 Trans: 12/18/2018 15:30:13 CC1: Kadeem Weaver M.D. documented in this encounter Plan of Treatment Not on file documented as of this encounter Visit Diagnoses Not on filedocumented in this encounter
--- OUTSIDE RECORDS SUMMARY | 2024-10-26 18:45 | XMS_ITS | Encounter Summary ---
Author Organization [employer] ([place], [place], [place], [place]) Address [address] [place] [address] Care Team Providers Care Torch Solderer Name Role Phone Unavailable Primary Care Provider Unavailabl e Encounter Details Date Type Department Care Team (Late st Contact Info) Description 12/18/2018 Transcribed Document [facility] Family Medicine [facility] [place] [address] ProviderJessee MD [address] [place] [id number] Social History Tobacco Use Types Packs/Day [...] Note - Jessee Rich MD - 12/18/2018 1:27 PM CDT [address] , [place] [address] Patient Copy Patient Information: Name: ENEIDA REY Current Date: 12/18/2018 13:27:07 : 1975 Patient Address: [address] [place] [address] [address]ERE[address] [phone] Patient Attending Physician: CLAUDIO PAREKH MD Primary Care Provider: CHAVA ELENA [facility] Primary Care Provider Discharge Diagnosis: Intractable pain; Left flank pain; Left ureteral stone Weight on Admission: 255 lb, 0 oz Comment: Follow-up Instructions: With: Address: When: Rufino SALAZAR MD-[facility] [place], [place] Within 2 to 4 weeks Comments: Call for follow up appointment ok to discharge home from urological perspective - UCx sent from OR - pt to remove stent by pulling strings on Saturday 12/23 - Rx for [place], colace and tamsulosin on chart - pt to follow-up with Dr. Salazar in 2-4 weeks With: Address: When: [facility] , only if needed Comments: Patient states Chava Elena is her Primary Care Provider. Patient was given a [facility] and was instructed to give it to Dr. Elena when she follows up. Please contact the Patient Resource Center at if you need assistance scheduling a Specialist or Primary Care Provider in the future With: Address: When: CHAVA CLARK [address] [place] [address] Business (1) Within 2 to 3 days Discharge Instructions: Immunizations Documented During Stay: No Immunizations Found Heart Failure Discharge Instructions (if any): Stroke Related Discharge Instructions (if any): Warfarin Related Discharge Instructions (if any): Final Medication List: Other Medications atorvastatin 20 Milligram(s) Oral Every Day. lisinopril 10 Milligram(s) Oral Every Day. metFORMIN 1,000 Milligram(s) Oral Every Day. Patient Allergies: No Known Medication Allergies; No Known Allergies Medication Instructions: Take your medications faithfully. Do NOT skip [...] cramping, rapid heartbeat, difficulty sleeping, and nervousness. CIGARETTE SMOKING: The facts are clear, cigarette smoking will shorten your life. Smoking can cause many illnesses along the way. As a healthcare provider, we recommend that you stop smoking. Assistance with quitting is available by contacting 5-573-XLEN-NOW. This is a free resource providing counseling, support, and referral. Or you may contact your personal physician. 4 WAYS TO GET AHEAD OF SEPSIS SEPSIS is a MEDICAL EMERGENCY. Time matters! Infections put you and your family at risk for a life-threatening condition called sepsis. Sepsis is the body???s extreme response to an infection. It is life-threatening, and without timely treatment, sepsis can rapidly lead to tissue damage, organ failure, and . Sepsis happens when an infection you already have???in your skin, lungs, urinary tract or somewhere else???triggers a chain reaction throughout your body. 1 [...] sepsis or if you have an infection that???s not getting better or is getting worse. To learn more about sepsis and how to prevent infections, visit www.cdc.gov/sepsis. STROKE is an EMERGENCY Every Min[employer] Counts ACT F.A.S.T! FACE ?? Facial droop ?? Uneven smile ARM ?? Arm numbness ?? Arm weakness SPEECH ?? Slurred speech ?? Difficulty speaking or understanding TIME ?? Call 911 and get to the hospital immediately Have the ambulance go to the nearest stroke center. STROKE Risk Factors High blood pressure High cholesterol Heart Disease Diabetes Smoking Heavy alcohol use Physical inactivity and obesity Atrial Fibrillation (irregular heartbeat) Family history of stroke Reminder: Be sure to sign up for the My [facility] patient portal, which gives you 12/11 access to your medical information ??? including these discharge instructions ??? using your computer, smartphone, or tablet. Just go to [place] to get started. Questions? Call . [facility] would like to thank you for allowing us to assist you with your healthcare needs. KRISSY Quinn CHRISTIE LYNN, (or sales representative meats) have received the above patient education materials/instructions and have verbalized understanding: Patient Signature _ Date/Time Patient Offal Baler Signature (if needed) Date/Time Clinician/Hospital Offal Baler Signature (if needed) Date/Time documented in this encounter Plan of Treatment Not on file documented as of this encounter Visit Diagnoses Not on filedocumented in this encounter
--- OUTSIDE RECORDS SUMMARY | 2024-10-26 18:45 | XMS_ITS | Encounter Summary ---
Author Organization [employer] ([place], [place], [place], [place]) Address [address] [place] [address] Care Team Providers Care Auto Transmission Mechanic Name Role Phone Unavailable Primary Care Provider Unavailabl e Encounter Details Date Type Department Care Team (Late st Contact Info) Description 12/17/2018 Transcribed Document [facility] [place] [facility] [address] ProviderJessee MD [facility] [place], [place] [id number] Social History Tobacco Use Types Packs/Day Years [...] Conversion Note - Historical ProviderMD - 12/17/2018 3:54 PM CDT Admission History, Adult Entered On: 12/17/2018 17:09 EDT Performed On: 12/17/2018 15:54 EDT by Cindy Klein Rn Advance Directive Patient has Advance Directive *Q : No, patient refuses Advance Directive information Cindy Klein Rn - 12/17/2018 17:02 EDT Anesthesia/Transfusion History Family History of Anesthesia Reaction : No prior transfusion(s) Transfusion History : Prior anesthesia without reaction Family History of Anesthesia Reaction : None Cindy Klein Rn - 12/17/2018 17:02 EDT Functional Assessment Living Situation : Home Patient Lives With : Adult Child/Children, Spouse Current Daily Living Assistance : None Sensory Deficits : Other: Wears glasses Mobility Assistance Prior to Admission : Independent LAL Hx Falls Immediate/Within 3 Months : No Current Home Treatments : None Cindy Klein Rn - 12/17/2018 17:02 EDT General Info Preferred Name : Freda Mode of Arrival on Unit : Wheelchair Legal Guardian : Spouse Support Person/Patient Lift Truck Operator : Yes Support Person/Pt Rep Contact Information : William Rai [phone] Want Family/Rep/Phys Notified of Admit : No Emergency Contact #1 : William Rai Emergency Contact #1 Emergency Contact #1 Relationship : Emergency Contact #2 : n/a Emergency Contact #2 Phone Number : n/a Emergency Contact #2 Relationship : n/a Chief Complaint : Pt has a known lt. kidney stone. Just left Dr. Salazar's office in [facility] and he is on vacation . Here with severe pain Information Obtained From : Patient Primary Language : Azeri Preferred Communication Mode : Verbal Communication Barrier : None Cindy Klein Rn - 12/17/2018 17:02 EDT Fall Risk Scales ABCs Fall Injury Risk Identification : None LAL Hx Falls Immediate/Within 3 Months : No Lal Secondary Diagnosis : No LAL Use of Ambulatory Aid : None LAL IV Therapy or IV Access : Yes Lal Gait/Transferring : Normal, bedrest, immobile Lal Mental Status : Oriented to own ability Lal Fall Risk Score : 20 LAL Fall Scale Risk Level : 0-24 Low Risk Burt Fall Interventions : Adequate lighting, Bed in low position, Call device within reach, Fall prevention handout/education per facility policy, Hourly comfort/safety rounds, Non-slip footwear, Personal items within reach, Reinforced to call for assistance before getting out of bed, Room free of clutter/spills, Upper side-rails up, Wheels locked, Wires/Cords secured Cindy Klein Rn - 12/17/2018 17:02 EDT Fall Risk Education Grid Bed Height/Stabilization : Verbalizes understanding Call light use : Verbalizes understanding Fall Prevention Protocol : Verbalizes understanding Risk Alert Methods : Verbalizes understanding Risk Factors : Verbalizes understanding Safety Aids : Verbalizes understanding Siderails use/risks : Verbalizes understanding Transfer/Mobility Techniques : Verbalizes understanding Cindy Klein Rn - 12/17/2018 17:02 EDT Barriers to Learning : None evident Individuals Taught : Patient Readiness to Learn : Cooperative Highest Level of Education : High school Baseline Knowledge of Topic : Good Teaching Method : Explanation Learning Style Preferences Family : Verbal explanation Learning Style Preferences Patient : Verbal explanation Teaching Evaluation : Verbalizes understanding Cindy Klein Rn - 12/17/2018 17:02 EDT Health Histories Smoking Status : 10 or more cigarettes (1/2 pack or more)/day in last 30 days Smokeless Tobacco Status : Never Desires Tobacco Cessation Medication : No Reason for No Tobacco Cessation Medication : Refuses FDA approved medications Cindy Klein Rn - 12/17/2018 17:02 EDT Social History (As Of: 12/17/2018 17:09:07 EDT) Tobacco: Smoking Status Current every day smoker. Years of Use: 25. Last Used: 08/18/15. (Last Updated: 08/19/2015 06:58:21 EDT by YAMILETH AKINS, FRANKIE) Alcohol: Date/Time of Last Drink: never. (Last Updated: 08/19/2015 06:57:14 EDT by YAMILETH AKINS, RN) Height and Weight, Clinical Dosing Height Source : Stated Height Entry Format : Union Height, Feet : 5 ft(Converted to: 152 cm, 60 Inch) Height, Inches : 3 Inch(Converted to: 0 ft 3 Inch, 7.62 cm) Clinical Height : 160.02 cm Weight Source : Bed scale Weight Entry Format : Union Clinical Dosing Weight : 119.91 kg Weight, Pounds : 263.8 lb Body Surface Area (BSA) : 2.18 m2 Body Mass Index : 46.8 kg/m2 (>HHI) [place] Body Weight : 52 kg Cindy Klein Rn - 12/17/2018 17:02 EDT Infectious Disease History Infectious Disease History : Chicken pox/Shingles Fever/Chills Last 48 Hours : No Travel To Regions with Travel Advisories : No Travel Outside [place] Within Last 30 Days : No Contact With Traveler to Advisory Region : No Tuberculosis Symptoms : None Cindy Klein Rn - 12/17/2018 17:02 EDT Influenza Vaccine Asmt, Adult Previous Vaccines from Immunization Schedule : No qualifying data available. Influenza Immunization, Current Season : No Inactivated Flu Vaccine Contraindications : No contraindications to inactivated influenza vaccine Transplant Workup/Recent Transplant : No Order for Influenza Vaccine : Declined Vaccination Cindy Klein Rn - 12/17/2018 17:02 EDT Pneumococcal Vaccine Previous Vaccines from Immunization Schedule : No qualifying data available. Pneumonia Immunization Received : No Pneumococcal Risk Assessment < Age 65 : None Cindy Klein Rn - 12/17/2018 17:02 EDT Nutrition History Feeding Ability : Independent Adaptive Feeding Equipment : None Adaptive Feeding Equipment : Regular Eating Poorly Due to Decreased Appetite : No Unplanned Weight Loss in Past 3-6 Months : No Malnutrition Screening Tool Total(mal) : 0 Malnutrition Screening Tool Risk Level : Patient not at risk Cindy Klein Rn - 12/17/2018 17:02 EDT Psychosocial History Does Someone Depend on You for Care? : No Chronic/Terminal Illness w/Freq Visits : No Do You Have a History of the Following? : Anxiety Currently in Unsafe Situation : No Tried to Harm Yourself in the Past? : No Thoughts of Harming/Killing Yourself : No Cindy Klein Rn - 12/17/2018 17:02 EDT Sleep Apnea Risk Assmt Hx of Obstructive Sleep Apnea Diagnosis : No Snore Loudly : Yes Tired, Fatigued, or Sleepy During Day : Yes Observed Stopping Breathing During Sleep : No Have/Are Being Treated for Hypertension : Yes BMI Greater Than 35 kg/m2 : Yes Age over 50 Years Old : No Neck Circumference Greater Than 40 cm : No Gender Male : No STOP-BANG Sleep Apnea Risk Level Score : 4 Cindy Klein Rn - 12/17/2018 17:02 EDT Valuables and Belongings Valuables and Belongings : Clothing Clothing : Common streetwear Clothing Disposition : With patient Cindy Klein Rn - 12/17/2018 17:02 EDT Electronically signed by Brook Mrcae Conversion Bead Forming Machine Set Up Operator Cerner at 08/08/2022 11:34 PM CDT documented in this encounter Plan of Treatment Not on file documented as of this encounter Visit Diagnoses Not on filedocumented in this encounter
--- OUTSIDE RECORDS SUMMARY | 2024-10-26 18:45 | XMS_ITS | Encounter Summary ---
Author Organization [employer] ([place], [place], [place], [place]) Address [address] [place] [address] Care Team Providers Care Tax Processor Name Role Phone Unavailable Primary Care Provider Unavailabl e Encounter Details Date Type Department Care Team (Late st Contact Info) Description 12/18/2018 Transcribed Document [facility] [place] [facility] [place] [address] ProviderJessee MD [address] [place] [address] [phone] Social History Tobacco Use Types Packs/Day Years [...] Conversion Note - Jessee ProviderMD - 12/18/2018 11:58 AM CDT On Going Discharge Planning Entered On: 12/18/2018 11:59 EDT Performed On: 12/18/2018 11:58 EDT by KIRSTIN BANKS Rn-Billet WorkerCandy Wrapping Machine Operator Progress Note Discharge Arrangements : Patient Post-Acute Information Patient Name: ENEIDA RAI Gender: Female : [birth year] Age: 43 Years No Post-Acute Placement(s) Listed No Post-Acute Service(s) Listed No [place] Referral(s) Listed KIRSTIN BANKS Rn-Billet Worker - 12/18/2018 11:58 EDT Narrative Progress Note Narrative Progress Note : manager family went to do [place], patient out in a procedure. Chart review done. CM will come back when pt or family available. KIRSTIN BANKS Rn-Billet Worker - 12/18/2018 11:58 EDT Electronically signed by Thor [facility] Conversion Galley Hand Cerner at 08/08/2022 11:09 PM CDT documented in this encounter Plan of Treatment Not on file documented as of this encounter Visit Diagnoses Not on filedocumented in this encounter
--- OUTSIDE RECORDS SUMMARY | 2024-10-26 18:45 | XMS_ITS | Encounter Summary ---
Author Organization [employer] ([place], [place], [place], [place]) Address [address] [place] [address] Care Team Providers Care Business Specialist Name Role Phone Unavailable Primary Care Provider Unavailabl e Encounter Details Date Type Department Care Team (Late st Contact Info) Description 12/17/2018 Transcribed Document [facility] [place] Family Medicine [address] [place] [address] ProviderJessee MD [address] [place] [place], [place] [id number] Social History Tobacco Use Types Packs/Day Years [...] Historical ProviderMD - 12/17/2018 4:12 PM CDT Forester Silviculture Details Entered On: 12/17/2018 17:45 EDT Performed On: 12/17/2018 16:12 EDT by Cindy Klein Rn Order Details Transport Mode Order Detail : Wheelchair Order Detail : 0 IV Order Detail : 1 Oxygen Order Detail : 0 Nurse Collect Order Detail : 0 Lift/Transfer : Independent Central Line Order Detail : No Room Service : Appropriate Arterial Line : No Cindy Klein Rn - 12/17/2018 17:45 EDT documented in this encounter Plan of Treatment Not on file documented as of this encounter Visit Diagnoses Not on filedocumented in this encounter
--- OUTSIDE RECORDS SUMMARY | 2024-10-26 18:45 | XMS_ITS | Encounter Summary ---
Author Organization [employer] ([place], [place], [place], [place]) Address [address] [place] [address] Care Team Providers Care License And Permit Specialist Name Role Phone Unavailable Primary Care Provider Unavailabl e Encounter Details Date Type Department Care Team (Late st Contact Info) Description 12/18/2018 Transcribed Document [facility] [place] [address] [place] [address] ProviderJessee MD [address] [place], [place] [id number] Social History Tobacco Use Types Packs/Day Years [...] Jessee ProviderMD - 12/18/2018 3:50 PM CDT Nursing Discharge Summary Entered On: 12/18/2018 15:50 EDT Performed On: 12/18/2018 15:50 EDT by Emilio Bell, dog beautician Documentation Patient Disposition, General : Discharge Discharge To : Home with ambulatory/outpatient follow-up Education Comment : Pt educated on pain managment, POC and safety. Verbalized understanding. Emilio Bell RN - 12/18/2018 15:50 EDT documented in this encounter Plan of Treatment Not on file documented as of this encounter Visit Diagnoses Not on filedocumented in this encounter
--- OUTSIDE RECORDS SUMMARY | 2024-10-26 18:45 | XMS_ITS | Encounter Summary ---
Author Organization [employer] ([place], [place], [place], [place]) Address [address] [place] [address] Care Team Providers Care Cottage Parent Name Role Phone Unavailable Primary Care Provider Unavailabl e Encounter Details Date Type Department Care Team (Late st Contact Info) Description 12/18/2018 Transcribed Document [facility] [place] Family Medicine [facility] [place] [address] ProviderJessee MD [address] [place], [place] [id number] Social History Tobacco Use Types Packs/Day Years [...] Conversion Note - Historical ProviderMD - 12/18/2018 2:00 AM CDT [employer] Executive Producer Details Entered On: 12/18/2018 2:26 EDT Performed On: 12/18/2018 2:00 EDT by Evelyn Valles, Rn Order Details Transport Mode Order Detail : Wheelchair Isolation Precautions Order Detail : Standard Precautions Order Detail : 0 IV Order Detail : 1 Oxygen Order Detail : 0 Nurse Collect Order Detail : 0 Lift/Transfer : Independent Central Line Order Detail : No Room Service : Appropriate Arterial Line : No Evelyn Valles, Devin - 12/18/2018 2:26 EDT documented in this encounter Plan of Treatment Not on file documented as of this encounter Visit Diagnoses Not on filedocumented in this encounter
--- OUTSIDE RECORDS SUMMARY | 2024-10-26 18:45 | XMS_ITS | Encounter Summary ---
Author Organization [employer] ([place], [place], [place], [place]) Address [address] [place] [address] Care Team Providers Care Chief Specialist Leed Name Role Phone Unavailable Primary Care Provider Unavailabl e Encounter Details Date Type Department Care Team (Late st Contact Info) Description 12/17/2018 Transcribed Document [facility] [place] Medicine [facility] [place] [address] ProviderJessee MD [address] [place] [address] [phone] Social History Tobacco Use Types Packs/Day Years [...] Conversion Note - Historical ProviderMD - 12/17/2018 5:08 PM CDT ED Discharge Entered On: 12/17/2018 17:08 EDT Performed On: 12/17/2018 17:08 EDT by Leslie Moya Rn Discharge Process Patient Disposition : Discharge Personal Belongings With Patient : Yes Patient Education Completed : Yes Teaching Evaluation : Verbalizes understanding IV Discontinued : No Nursing Documentation Completed : Yes Leslie Moya Rn - 12/17/2018 17:08 EDT Admission, ED Nurse Report Acceptance Time : 12/17/2018 16:30 EDT `Nurse Report (Hand Off) : Called Leslie Moya Rn - 12/17/2018 17:08 EDT documented in this encounter Plan of Treatment Not on file documented as of this encounter Visit Diagnoses Not on filedocumented in this encounter
--- OUTSIDE RECORDS SUMMARY | 2024-10-26 18:45 | XMS_ITS | Encounter Summary ---
Author Organization [employer] ([place], [place], [place], [place]) Address [address] [place] [address] Care Team Providers Care Staff Analyst Name Role Phone Unavailable Primary Care Provider Unavailabl e Encounter Details Date Type Department Care Team (Late st Contact Info) Description 12/18/2018 Transcribed Document [facility] [place] [address] [place] [address] ProviderJessee MD [address] [place], [place] [id number] Social History Tobacco Use Types Packs/Day Years [...] Conversion Note - Historical ProviderMD - 12/18/2018 4:48 PM CDT Nursing Discharge Summary Entered On: 12/18/2018 16:49 EDT Performed On: 12/18/2018 16:48 EDT by Emilio Bell, barrel lathe operator outside Documentation Discharge Date/Time : 12/18/2018 16:25 EDT Patient Disposition, General : Discharge Discharge To : Home with ambulatory/outpatient follow-up Education Comment : Pt educated on pain managment, POC and safety. Verbalized understanding. Emilio Bell RN - 12/18/2018 16:48 EDT documented in this encounter Plan of Treatment Not on file documented as of this encounter Visit Diagnoses Not on filedocumented in this encounter
--- NOTE | 2024-10-26 19:04 | ED_ITS ---
Discharge Plan Disposition Patient Disposition: Home, Self-Care Prescriptions Prescriptions: New oxycodone 5 mg tablet 5 mg PO Q6H PRN (Reason: pain) 3 Days Qty: 12 0RF Referrals Follow up/Referrals: Vanessa Godinez MD [Primary Care Provider, Medical] - See instructions Activity Restrictions/Add. Instructions Additional Instructions/Restrictions: You are being prescribed oxycodone for your severe dental pain. Take this as prescribed. I also encourage you to take Tylenol and ibuprofen every 6 hours as needed to help with symptoms. Follow-up with your dentist. If you develop any new or worsening symptoms, or if you become concerned for your health for any reason, return to the emergency department for evaluation. Clinical Impressions Clinical Impression: Pain, dental, Body aches Print Language Print Language: Greenlandic Discharge ED Provider: Quinn Saha General Adult HPI General Chief complaint: Dental/Oral Stated complaint: Toothache on antibiotics,Fever 101.8,HORTA,achy Time Seen by Provider: 10/26/24 18:35 Mode of Arrival: Ambulatory Source of Information: Patient Description of Symptoms (Recalled from ER Triage Doc. by RN): PT REPORTS DENTAL PAIN, LOWER LEFT SIDE. TOOTH BROKEN UNDER CROWN. CURRENTLY ON ABX. REPORTS FEVER TODAY. History of Present Illness HPI narrative: Freda Rai is a 49y female with a past medical history of prediabetes who presents to the emergency department for complaints of fever and dental pain. Patient states that 2 weeks ago, she started to get pain and swelling to the gums along her tooth #19. She has been seen by 2 dentists who have put her on amoxicillin and clindamycin, which she is taking currently. She states the pain comes and goes and she is taking 800 mg ibuprofen for the pain. Today, she states that the pain has been uncontrolled and she developed a fever of 101.8 ?F. She states that they plan on removing the tooth once the infection is gone. Related Data Previous Rx's ?Medication ?Instructions ?Recorded oxycodone 5 mg tablet 5 mg PO Q6H PRN pain 3 days #12 10/26/24 tabs Allergies Allergy/AdvReac Type Severity Reaction Status Date / Time NO KNOWN ALLERGIES - NKA Allergy Mild Uncoded 04/09/17 15:03 [facility] Disclaimer: The information contained in this section may have been updated after the patient was seen, as this information can be updated by other users. Social History Smoking Status: Current every day smoker alcohol intake: never current occupational status: employed Travel in the last 8 weeks?: None ROS Obtained: Yes Systems reviewed as appropriate & no additional complaints except as documented Physical Exam General General appearance: alert and in no apparent distress Comment: Appears mildly uncomfortable Head Head exam: atraumatic Eye Eye exam: Present normal appearance ENT ENT exam: Present normal external ear exam and other ( periodontal abscess along the gumline of tooth #19. Otherwise, normal oropharyngeal exam.) Neck Neck exam: Present full ROM Chest Chest inspection: Present symmetric chest wall rise Respiratory Respiratory exam: Present normal lung sounds bilaterally; Absent respiratory distress Cardiovascular Cardiovascular exam: Present regular rate and normal rhythm Abdominal Exam Abdominal exam: Present soft; Absent tenderness or guarding Extremities Exam Extremities exam: Present normal inspection Back Exam Back exam: Present normal inspection Neurological Exam Neurological exam: Present alert and oriented X3 Psychiatric Psychiatric exam: Present normal affect Skin Skin exam: Present warm and dry Medical Decision Making Medical Records Screening: Per USPSTF and CDC recommendations, given the prevalence of disease in our region, it is our hospital?s policy to screen for HIV and viral Hepatitis for all patients aged 18 and over and those with ongoing risk factors. Bennett Inquiry Pt receiving controlled substance: Yes Bennett was queried for this patient: Yes Risks and benefits of using a controlled substance: were discussed with pt by me Vital Signs: 10/26/24 18:30 Temperature 99.6 F Temperature Source Oral Pulse Rate [Radial] 85 Respiratory Rate 18 Blood Pressure [Right Arm] 142/79 H Blood Pressure Mean [Right Arm] 100 Blood Pressure Source [Right Arm] Automatic Cuff Blood Pressure Position [Right Arm] Sitting 02 Sat by Pulse Oximetry 100 Oxygen Delivery Method Room Air Lab Data Lab Results 10/26/24 18:35: WBC 5.6, RBC 5.17, Hgb 14.9, Hct 43.6, MCV 84.3, MCH 28.8, MCHC 34.2, RDW 12.3, Plt Count 264, MPV 9.3, Neut % (Auto) 71.2, Lymph % (Auto) 16.7, [place] % (Auto) 7.0, Eos % (Auto) 3.4, Baso % (Auto) 1.3, Neut # (Auto) 4.0, Lymph # (Auto) 0.9, [place] # (Auto) 0.4, Eos # (Auto) 0.2, Baso # (Auto) 0.1, Sodium 132 L, Potassium 4.4, Chloride 95 L, Carbon Dioxide 26, Anion Gap 15.4 H, BUN 19 H, Creatinine 0.80, Estimated Creat Clear 108, Estimated GFR 76, Est GFR ( Amer) 92, Glucose 72 L, Calcium 9.5, Total Bilirubin 0.6, AST 41 H, ALT 34, Alkaline Phosphatase 75, C-Reactive Protein 14.0 H, Total Protein 7.9, Albumin 4.7, Globulin 3.2, Albumin/Globulin Ratio 1.5, HCV Ab KATINA w/Rflx PCR Qn Negative, HIV Ag/Ab Combo Qual Negative 10/26/24 18:44: VBG pH 7.38, VBG pCO2 41.6, VBG pO2 29.0, VBG HCO3 24.1, VBG Total CO2 25.4, VBG O2 Saturation 59.2, VBG Base Excess -1.0, VBG Lactic Acid 1.5 10/26/24 18:35 10/26/24 18:35 Orders (Tests/Meds): ED MEDICATIONS Discontinued Medications Generic Name Dose Route Start Last Admin Trade Name Freq PRN Reason Stop Dose Admin Acetaminophen 1,000 mg 10/26/24 18:44 10/26/24 19:17 Acetaminophen 500mg Tab PO 10/26/24 18:45 1,000 mg ONCE ONE Administration Oxycodone HCl 5 mg 10/26/24 18:44 10/26/24 19:17 Oxycodone 5mg Immediate Release Tablet PO 10/26/24 18:45 5 mg ONCE ONE Administration ORDERS Category Date Time Status CBC w/Auto Diff [Complete Blood Count Auto Diff] Stat Lab 10/26/24 18:35 Completed CMP [Comprehensive Metabolic Panel] Stat Lab 10/26/24 18:35 Completed CRP [C-Reactive Protein] Stat Lab 10/26/24 18:35 Completed HIV Combo Stat Lab 10/26/24 18:35 Completed Hepatitis C Ab Qual. W/ RFX Stat Lab 10/26/24 18:35 Completed Blood Culture Stat Micro 10/26/24 19:10 Received VBG [Venous Blood Gas] Stat RT 10/26/24 18:44 Completed Medical Decision Narrative: Freda Rai is a 49y female with a past medical history of prediabetes who presents to the emergency department for complaints of fever and dental pain. Patient states that 2 weeks ago, she started to get pain and swelling to the gums along her tooth #19. She has been seen by 2 dentists who have put her on amoxicillin and clindamycin, which she is taking currently. She states the pain comes and goes and she is taking 800 mg ibuprofen for the pain. Today, she states that the pain has been uncontrolled and she developed a fever of 101.8 ?F and developed full body aches today. She states that they plan on removing the tooth once the infection is gone. On arrival, patient is mildly hypertensive with blood pressure 142/79, heart rate within normal limits, afebrile with temperature of 99.6 ?F. Normal oxygen saturation. Maintaining appropriate oxygen saturation on room air. Physical exam, as stated above, revealed an uncomfortable but nontoxic-appearing female. She is in no respiratory distress. She has swelling along the gumline of tooth #19 consistent with dental abscess with no other findings within the oropharyngeal cavity. Deferral diagnosis includes, but is not limited to: Uncontrolled pain from dental abscess, viral illness. Given patient's reported fever at home, will rule out sepsis with blood cultures, lab work. The most morbid conditions were considered and workup was based on these. CT imaging of the face/soft tissue neck with IV contrast was considered to evaluate the abscess further, however it does not appear to be tracking down the neck and seems localized to the gumline. She states that also has not grown in size. It is felt that radiation exposure outweighs the potential benefits. Workup in the emergency room included: Blood cultures, CBC, CMP, CRP, VBG with lactate. Patient's symptoms initially treated with 5 mg of oral oxycodone and 1 g of oral Tylenol. Laboratory studies interpreted by me personally. No leukocytosis. CBC unremarkable nonactionable. No acidosis. No elevation in lactate. Mild hyponatremia with sodium 132. Anion gap of 15.4. BUN of 19 but creatinine normal at 0.8. AST mildly elevated at 41 but otherwise unremarkable nonactionable. CRP very mildly elevated at 14. Blood cultures pending at this time. Patient's workup unremarkable for any acute pathology. This felt the patient's full body aches could be viral in nature, however given worsening dental pain in the setting of a dental abscess., will send with 3-day course of oxycodone and was also encouraged to take Tylenol and ibuprofen. She was encouraged to follow-up with her dentist. Return precautions were given. All questions were answered. She demonstrated understanding and was in agreement this plan. She was then discharged from the emergency department in stable condition. Critical Care Critical Care Time Critical Care Time: No
[2024-10-26 19:15] LABS: Lactate Venous 1.5 mmol/L (0.4-2.0); VBG HCO3 24.1 mmol/L (23-30); VBG PCO2 41.6 mmol/L (35-51); VBG PH 7.38 mmol/L (7.31-7.41); VBG PO2 29.0 mmol/L (28-40)
[2024-10-26] MEDS: OXYCODONE 5MG IMMEDIATE RELEASE TABLET 5 MG PO (19:17)
[2024-10-26] MEDS: ACETAMINOPHEN 500MG TAB 1000 MG PO (19:17)
[2024-10-26 19:18] LABS: Hematocrit 43.6 % (37.0-47.0); Hemoglobin 14.9 g/dL (12.2-16.2); Immature Granulocytes % 0.4 %; Mean Corpuscular HGB Conc 34.2 g/dL (31.8-35.4); Mean Corpuscular Hemoglobin 28.8 pg (27.0-31.2); Mean Corpuscular Volume 84.3 fl (81-99); Nucleated Red Blood Cells % 0 %; Platelet Count 264 K/mm3 (142-424); Red Blood Count 5.17 M/mm3 (4.20-5.40); Red Cell Distribution Width-SD 37.5 fL; White Blood Count 5.6 K/mm3 (4.8-10.8)
[2024-10-26 19:24] LABS: Alanine Aminotransferase 34 U/L (12-78); Albumin Level 4.7 g/dl (3.5-5.0); Albumin/Globulin Ratio 1.5 (1.1-1.8); Alkaline Phosphatase 75 U/L (38-126); Anion Gap 15.4 mEq/L (5-15); Aspartate Amino Transferase 41 U/L (14-36); Bilirubin,Total 0.6 mg/dl (0.2-1.3); Blood Urea Nitrogen 19 mg/dl (7-17); Calcium 9.5 mg/dl (8.4-10.2); Carbon Dioxide 26 mmol/L (22.0-30.0); Chloride 95 mmol/L (98-107); Creatinine Clearance Estimated 108 mL/min (50-200); Creatinine,Serum 0.80 mg/dl (0.52-1.04); Estimated Glomerular Filt Rate 76 ml/min (>60); GFR (African American) 92 ML/MIN (>60); Globulin 3.2 g/dL (1.3-3.2); Glucose 72 mg/dl (74-100); Potassium 4.4 mmoL/L (3.5-5.1); Sodium 132 mmol/L (136-145); Total Protein,Serum 7.9 g/dl (6.3-8.2)
[2024-10-26 19:29] LABS: C-Reactive Protein 14.0 mg/L (0-4)
[2024-10-26 20:12] LABS: Hepatitis C Ab Qual. W/ RFX NEGATIVE (Negative)
[2024-10-26 20:27] VITALS: BP 114/75; PULSE 83; RESP 18; TEMP 36.7
== END 2024-10-26 20:32 | disposition home or self-care (01) ==
PROVIDERS: Emergency Provider Student in an Organized Health Care Education/Training Program; PCP Family Medicine
DX: R50.9 Fever, unspecified (principal); K04.7 Periapical abscess without sinus; F17.210 Nicotine dependence, cigarettes, uncomplicated; E87.1 Hypo-osmolality and hyponatremia; Z11.59 Encounter for screening for other viral diseases; Z11.4 Encounter for screening for human immunodeficiency virus [HIV]
CPT/HCPCS: 80053; 82803; 85025; 86140; 86803; 87040; 87389; 99284